=== PATIENT | male | born 1945 | race Caucasian/White ===

== ENCOUNTER 2016-12-02 07:46 | Day surgery (SDC) | payer MEDICARE ==
--- NOTE | 2016-07-13 20:58 | HP ---
DATE OF ADMISSION: CHIEF COMPLAINT: Gastroesophageal reflux disease. HISTORY OF PRESENT ILLNESS: Patient is a 71-year-old male with a history of chronic reflux. He underwent an upper endoscopy in 2012. The patient was found to have erosive distal esophagitis and a hiatal hernia and gastritis as well. The patient has been on antacid therapy since that time. Past medical history and past surgical history: See list. ALLERGIES: See list. PHYSICAL EXAMINATION: Deferred until the time of procedure. IMPRESSION: A 71-year-old male with reflux. PLAN: Will proceed with upper endoscopy on 07/15. The risks of bleeding, infection and bowel perforation will be discussed with the patient preoperatively.
[2016-11-25 09:43] VITALS: BMI 28.8
[~2016-12-02 07:46] MED LIST: LACTATED RINGERS 1,000 ML IV SCH
[2016-12-02 08:15] VITALS: RESP 20; TEMP 96.9
[2016-12-02] MEDS ORDERED: PROPOFOL 10 MG/ML 20 ML VIAL IV ONE (08:22)
[2016-12-02] MEDS ORDERED: LIDOCAINE 1% INJ 10MG/ML (20 ML MDV) ONE (08:22)
--- NOTE | 2016-12-02 08:25 | P.GSHP ---
History of Present Illness H&P Date: 12/02/16 Chief Complaint: Third Patient today for upper endoscopy. He has a chronic history of reflux. 2012 had an upper endoscopy which revealed distal esophagitis and a hiatal hernia. Patient is taking daily omeprazole. His symptoms are well-controlled on his oral medications. Denies dysphagia. Past Medical History Past Medical History: GERD/Reflux, Hyperlipidemia, Hypertension, Myocardial Infarction ([place]), Osteoarthritis ([place]) Additional Past Medical History / Comment(s): Hiatal Hernia, blood clot in rt arm yrs ago, hiatal hernia, Last Myocardial Infarction Date:: 2004 History of Any Multi-Drug Resistant Organisms: None Reported Past Surgical History: Heart Catheterization With Stent, Orthopedic Surgery Additional Past Surgical History / Comment(s): orchiectomy, colonoscopy; EGD, yemi hand carpal tunnel, yemi shoulders surgery Past Anesthesia/Blood Transfusion Reactions: Previous Problems w/ Anesthesia Additional Past Anesthesia/Blood Transfusion Reaction / Comment(s): . Date of Last Stent Placement:: 2004 Past Psychological History: No Psychological Hx Reported Smoking Status: Former smoker Past Alcohol Use History: Occasional Additional Past Alcohol Use History / Comment(s): quit smoking 30 yrs ago, smoked for 20 yrs Past Drug Use History: None Reported - Past Family History Sister(s) Family Medical History: Cancer Daughter(s) Family Medical History: Cancer Medications and Allergies Home Medications Medication Instructions Recorded Confirmed Type Aspirin 325 mg PO DAILY 07/13/16 12/02/16 History Atenolol 25 mg PO BID 07/13/16 12/02/16 History Atorvastatin [Lipitor] 80 mg PO HS 07/13/16 12/02/16 History Cholecalciferol [Vitamin D3] 1,000 unit PO DAILY 07/13/16 12/02/16 History Enalapril [Vasotec] 2.5 mg PO HS 07/13/16 12/02/16 History Ezetimibe [Zetia] 10 mg PO HS 07/13/16 12/02/16 History Omeprazole 20 mg PO DAILY 07/13/16 12/02/16 History Oxybutynin Chloride [Ditropan XL] 20 mg PO HS 07/13/16 12/02/16 History Allergies Allergy/AdvReac Type Severity Reaction Status Date / Time No Known Allergies Allergy Verified 11/25/16 09:29 Surgical - Exam Vital Signs Temp Pulse Resp BP Pulse Ox 96.9 F L 84 20 128/74 94 L 12/02/16 08:13 12/02/16 08:13 12/02/16 08:13 12/02/16 08:13 12/02/16 08:13 Physical exam: General: Well-developed, well-nourished HEENT: Normocephalic, sclerae nonicteric Abdomen: Nontender, nondistended Extremities: No edema Neuro: Alert and oriented Assessment and Plan (1) GERD (gastroesophageal reflux disease) Narrative/Plan: Will proceed with upper endoscopy at this time. Status: Acute
--- NOTE | 2016-12-02 08:32 | P.PCN ---
Date of Procedure: 12/02/16 Procedure(s) Performed: Preoperative Dx: GERD Postoperative Dx: Gastritis with small erosions, moderate hiatal hernia Procedure: EGD with Bx Anesthesia: Sedation Endoscopist: Dr. Miranda Specimens: Antrum Endoscopic Procedure: The patient was on the endoscopy table in the left decubitus position. The Olympus gastroscope was inserted into the oropharynx and passed under direct visualization to the region of the third portion of the duodenum. From that point the scope was slowly withdrawn inspecting all surfaces carefully. There were no neoplastic inflammatory or polypoid lesions throughout the duodenum. The pylorus was widely patent. The stomach was carefully inspected. There was gastritis present with a few small prepyloric erosions noted. A biopsy of the antrum took place to rule out H. pylori. Retroflexion revealed a moderate hiatal hernia. The patient's previous esophagitis however is resolved and no definite inflammation was seen. The patient was then taken to the recovery room in stable condition per anesthesia guidelines. Recommendations: Wait biopsy results. Continue antiacid therapy.
[2016-12-02 08:52] VITALS: BP 119/73; PULSE 73
== END 2016-12-02 08:19 | disposition home or self-care (01) ==
LOC: ORWHC2ENDO 07:46
PROVIDERS: ATTEND Surgery
DX: K29.50 Unspecified chronic gastritis without bleeding (principal); K44.9 Diaphragmatic hernia without obstruction or gangrene; K21.9 Gastro-esophageal reflux disease without esophagitis; E78.5 Hyperlipidemia, unspecified; I10 Essential (primary) hypertension; I25.2 Old myocardial infarction; M19.90 Unspecified osteoarthritis, unspecified site; I25.10 Atherosclerotic heart disease of native coronary artery without angina pectoris; Z95.5 Presence of coronary angioplasty implant and graft; Z87.891 Personal history of nicotine dependence; Z79.82 Long term (current) use of aspirin; Z79.899 Other long term (current) drug therapy
CPT/HCPCS: 88305; 88342; 43239; J2001; J2704

== ENCOUNTER → 2017-03-01 | Outpatient (CLI) | payer MEDICARE ==
--- NOTE | 2017-03-01 17:32 | US ---
EXAMINATION TYPE: US carotid duplex BILAT DATE OF EXAM: 03/01/2017 COMPARISON: 2010 US CLINICAL HISTORY: I65.23 Occlusion and stenosis of bilateral carotid. Vertigo EXAM MEASUREMENTS: RIGHT: Peak Systolic Velocity (PSV) cm/sec ----- Right CCA: 78.9 ----- Right ICA: 110 ----- Right ECA: 118 ICA/CCA ratio: 1.4 RIGHT: End Diastole cm/sec ----- Right CCA: 20.5 ----- Right ICA: 28.6 ----- Right ECA: 19.3 LEFT: Peak Systolic Velocity (PSV) cm/sec ----- Left CCA: 86.7 ----- Left ICA: 113 ----- Left ECA: 191 ICA/CCA ratio: 1.3 LEFT: End Diastole cm/sec ----- Left CCA: 23.6 ----- Left ICA: 34.6 ----- Left ECA: 18.6 VERTEBRALS (direction of flow): Right Vertebral: diminished Left Vertebral: antegrade 1. Mild changes. 2. Bilateral ICA tortuosity. 3. No elevated velocities. 4. No significant stenosis. 5. Diminished rt vertebral. IMPRESSION: 1. I DO NOT SEE EVIDENCE OF A HEMODYNAMICALLY SIGNIFICANT STENOSIS IN EITHER INTERNAL CAROTID OR COMM ON CAROTID ARTERY. 2. ELEVATED FLOW VELOCITY, LEFT ECA. 3. DAMPENED FLOW IN THE RIGHT VERTEBRAL ARTERY MAY REFLECT DOWNSTREAM NARROWING. Criteria for Assigning % of Stenosis / Diameter reduction (Estimation based on the indirect measurements of the internal carotid artery velocities (ICA PSV). 1. Normal (no stenosis)=ICA PSV < 125 cm/s: ratio < 2.0: ICA EDV<40 cm/s. 2. Less than 50% stenosis=ICA PSV < 125 cm/s: ratio < 2.0: ICA EDV<40 cm/s. 3. 50 to 69% stenosis=ICA PSV of 125 to 230 cm/s: ration 2.0 ? 4.0: ICA EDV 40-100 cm/s. 4. Greater than 70% stenosis to near occlusion= ICA PSV > 230 cm/s: ratio > 4.0: ICA EDV > 100 cm/s. 5. Near occlusion= ICA PSV velocities may be low or undetectable: variable ratio and ICA EDV. 6. Total occlusion=unable to detect flow.
== END | disposition home or self-care (01) ==
LOC: RADUSWWP 16:01
PROVIDERS: ATTEND Internal Medicine
DX: I65.23 Occlusion and stenosis of bilateral carotid arteries (principal)
CPT/HCPCS: 93880

== ENCOUNTER 2017-08-05 19:39 | Emergency (ER) | payer MEDICARE ==
[2017-08-05 20:08] VITALS: RESP 18
[2017-08-05] MEDS ORDERED: PROPARACAINE 0.5% OPHTH DROPS 15 ML BTL LEFT EYE STA (21:18)
[2017-08-05] MEDS ORDERED: TOBRAMYCIN 0.3% OPHTH OINT 3.5 GM TUBE LEFT EYE STA (21:29)
--- NOTE | 2017-08-05 21:31 | ED ---
Eye Problem HPI - General Chief complaint: Eye Problems Stated complaint: Eye Problem Time Seen by Provider: 08/05/17 20:41 Source: patient Mode of arrival: ambulatory Limitations: no limitations - History of Present Illness Initial comments: 72-year-old male patient presents to the emergency department today for evaluation of left eye irritation and redness. Patient states that he has been having issues with the eye for the last couple of months. He states that however over the last couple of days the issue seem to be getting worse. He states it feels like he has something in the eye. He denies any known incident where something became stuck in the eye. He states he has tried to flush out, has been using Visine on a daily basis for the last couple of months. He states he has clear drainage from the eye all throughout the day. He states when he wakes up there is some mild crusting. He denies any cough, congestion, sore throat, nasal drainage, fever, or chills. He denies any difficulty with vision. Patient denies any recent rash, shortness breath, chest pain, abdominal pain, nausea, vomiting, diarrhea, constipation, back pain, numbness, tingling, dizziness, weakness, hematuria, dysuria, urinary urgency, urinary frequency, headache, or any other complaints. - Related Data Home Medications Medication Instructions Recorded Confirmed Aspirin 325 mg PO DAILY 07/13/16 12/02/16 Atenolol 25 mg PO BID 07/13/16 12/02/16 Atorvastatin [Lipitor] 80 mg PO HS 07/13/16 12/02/16 Cholecalciferol [Vitamin D3] 1,000 unit PO DAILY 07/13/16 12/02/16 Enalapril [Vasotec] 2.5 mg PO HS 07/13/16 12/02/16 Ezetimibe [Zetia] 10 mg PO HS 07/13/16 12/02/16 Omeprazole 20 mg PO DAILY 07/13/16 12/02/16 Oxybutynin Chloride [Ditropan XL] 20 mg PO HS 07/13/16 12/02/16 Allergies Allergy/AdvReac Type Severity Reaction Status Date / Time No Known Allergies Allergy Verified 08/05/17 20:08 Review of Systems ROS Statement: Those systems with pertinent positive or pertinent negative responses have been documented in the HPI. ROS Other: All systems not noted in ROS Statement are negative. Past Medical History Past Medical History: GERD/Reflux, Hyperlipidemia, Hypertension, Myocardial Infarction ([place]), Osteoarthritis (OA) Additional Past Medical History / Comment(s): Hiatal Hernia, blood clot in rt arm yrs ago, hiatal hernia, vertigo Last Myocardial Infarction Date:: 2004 History of Any Multi-Drug Resistant Organisms: None Reported Past Surgical History: Heart Catheterization With Stent, Orthopedic Surgery Additional Past Surgical History / Comment(s): orchiectomy, colonoscopy; EGD, yemi hand carpal tunnel, yemi shoulders surgery Past Anesthesia/Blood Transfusion Reactions: Previous Problems w/ Anesthesia Additional Past Anesthesia/Blood Transfusion Reaction / Comment(s): . Date of Last Stent Placement:: 2004 Past Psychological History: No Psychological Hx Reported Smoking Status: Former smoker Past Alcohol Use History: Occasional Past Drug Use History: None Reported - Past Family History Sister(s) Family Medical History: Cancer Daughter(s) Family Medical History: Cancer General Exam Limitations: no limitations General appearance: alert, in no apparent distress, other (Physical well- developed, well-nourished adult male patient in no acute distress. Vital signs upon presentation are temperature 97.7F, pulse 99, respirations 18, blood pressure 142/71, pulse ox 93% on room air.) Eye exam: Present: normal appearance, PERRL, EOMI, conjunctival injection (Mild left conjunctival injection), other (Clear drainage noted from the left eye. Floor seen stain with Wood's lamp examination was performed, there was evidence of a conjunctival abrasion at 3:00. No evidence of hyphema, or corneal abrasion noted.). Absent: scleral icterus, periorbital swelling ENT exam: Present: normal exam, normal oropharynx, mucous membranes moist Respiratory exam: Present: normal lung sounds bilaterally. Absent: respiratory distress, wheezes, rales, rhonchi, stridor Cardiovascular Exam: Present: regular rate, normal rhythm, normal heart sounds. Absent: systolic murmur, diastolic murmur, rubs, gallop, clicks Neurological exam: Present: alert, oriented X3, CN II-XII intact Psychiatric exam: Present: normal affect, normal mood Skin exam: Present: warm, dry, intact, normal color. Absent: rash Course Vital Signs 08/05/17 08/05/17 20:05 21:39 Temperature 97.7 F 97.6 F Pulse Rate 99 84 Respiratory 18 18 Rate Blood Pressure 142/71 113/77 O2 Sat by Pulse 93 L 96 Oximetry Medical Decision Making - Medical Decision Making 72-year-old male patient presented to the emergency department today for evaluation of left eye irritation discomfort. Physical examination did reveal mild conjunctival injection, with clear drainage. Bethea lamp examination with for seen stain was performed and did reveal a conjunctival abrasion at 3:00. Patient will be discharged home with tobramycin ophthalmic ointment. He is instructed to take ibuprofen for discomfort. He is instructed to use a an eyedrop with no preservatives like a and ice saline. He is instructed not to use Visine. He is instructed to follow-up with ophthalmology for recheck in 1- 2 days. He is instructed to return here immediately for any new, worsening, or concerning symptoms. He verbalizes understanding and agrees with this plan. Disposition Clinical Impression: Conjunctival abrasion Disposition: HOME SELF-CARE Condition: Good Instructions: Corneal Abrasion (ED) Additional Instructions: You have a conjunctival abrasion. Instill tobramycin ointment to the lower eyelid 4 times daily while awake. Do not use Visine. Purchase an over-the- counter eyedrop that is preservative free, or something like eye saline drops. Follow-up with ophthalmology for reevaluation 1-2 days. Return here immediately for any new, worsening, or concerning symptoms. Referrals: Noel Wang MD [Primary Care Provider] - 1-2 days Isael Diallo MD [STAFF PHYSICIAN] - 1-2 days Time of Disposition: 21:31
[2017-08-05 21:40] VITALS: BP 113/77; PULSE 84; TEMP 97.6
== END 2017-08-05 21:40 | disposition home or self-care (01) ==
LOC: EC 19:39
DX: S05.02XA Injury of conjunctiva and corneal abrasion without foreign body, left eye, initial encounter (principal); K21.9 Gastro-esophageal reflux disease without esophagitis; E78.5 Hyperlipidemia, unspecified; I10 Essential (primary) hypertension; I25.2 Old myocardial infarction; Z95.5 Presence of coronary angioplasty implant and graft; Z87.891 Personal history of nicotine dependence; Z79.82 Long term (current) use of aspirin; Z79.899 Other long term (current) drug therapy
CPT/HCPCS: 99282

== ENCOUNTER → 2017-09-03 | Outpatient (CLI) | payer MEDICARE ==
--- NOTE | 2017-09-03 10:39 | US ---
EXAMINATION TYPE: US kidneys/renal and bladder DATE OF EXAM: 09/03/2017 COMPARISON: NONE CLINICAL HISTORY: Asymptomatic Microscopic Hematuria R31.21. EXAM MEASUREMENTS: Right Kidney: 10.3 x 5.4 x 5.4 cm Left Kidney: 10.6 x 5.4 x 4.9 cm Right Kidney: No hydronephrosis or masses seen Left Kidney: No hydronephrosis or masses seen Bladder: wnl Bilateral Jets seen: Yes Cortical medullary differentiation is maintained. Cortical echogenicity may be mildly increased bilat erally. IMPRESSION: Correlate for possible medical renal disease.
== END | disposition home or self-care (01) ==
LOC: RADUSWWP 09:26
PROVIDERS: ATTEND Internal Medicine
DX: R31.21 Asymptomatic microscopic hematuria (principal)
CPT/HCPCS: 76770

== ENCOUNTER → 2018-01-03 | Outpatient (CLI) | payer MEDICARE | LOC: LABWHC1 20:00 | PROVIDERS: ATTEND Internal Medicine | DX: R19.7 Diarrhea, unspecified (principal) | CPT/HCPCS: 87324 ==

== ENCOUNTER 2018-02-02 10:22 | Inpatient (IN) | payer MEDICARE ==
[2018-02-02] MEDS ORDERED: SODIUM CHLORIDE 0.9% 1,000 ML IV STA ×2 (11:06)
[2018-02-02 11:23] LABS: Basophils # (A) 0.1 k/uL (0-0.2); Basophils % (A) 0 %; Eosinophils # (A) 0.1 k/uL (0-0.7); Eosinophils % (A) 1 %; HCT 43.3 % (39.0-53.0); HGB 14.6 gm/dL (13.0-17.5); Lymphocytes # (A) 0.9 k/uL (1.0-4.8); Lymphocytes % (A) 6 %; MCH 28.2 pg (25.0-35.0); MCHC 33.7 g/dL (31.0-37.0); MCV 83.6 fL (80.0-100.0); Mean Platelet Volume 7.2; Monocytes # (A) 1.9 k/uL (0-1.0); Monocytes % (A) 12 %; Neutrophils # (A) 13.2 k/uL (1.3-7.7); Neutrophils % (A) 80 %; Platelet Count 243 k/uL (150-450); RBC 5.18 m/uL (4.30-5.90); RDW 14.3 % (11.5-15.5); WBC 16.4 k/uL (3.8-10.6)
[2018-02-02 11:34] LABS: ALT 30 U/L (21-72); AST 23 U/L (17-59); Albumin 3.8 g/dL (3.5-5.0); Alkaline Phosphatase 104 U/L (38-126); Amylase <30 U/L (30-110); Anion Gap 15 mmol/L; Blood Urea Nitrogen 14 mg/dL (9-20); Carbon Dioxide 23 mmol/L (22-30); Chloride 101 mmol/L (98-107); Glucose 105 mg/dL (74-99); Lipase 20 U/L (23-300); Potassium 4.1 mmol/L (3.5-5.1); Sodium 139 mmol/L (137-145); Total Bilirubin 1.1 mg/dL (0.2-1.3); Total Protein 6.4 g/dL (6.3-8.2)
--- NOTE | 2018-02-02 12:06 | XR ---
EXAMINATION TYPE: XR chest 2V DATE OF EXAM: 02/02/2018 COMPARISON: 08/07/2013 TECHNIQUE: PA and lateral views submitted. HISTORY: Chest pain FINDINGS: No pneumothorax or pleural Atherosclerotic change aorta. There is subsegmental changes at the left bj ng base. Hypertrophic and degenerative change of the spine. No overt failure. Biapical pleural thicke armand noted. Chronic arthropathy of the shoulders. IMPRESSION: 1. Left basilar subsegmental consolidation correlate for atelectasis versus infiltrate..
--- NOTE | 2018-02-02 12:07 | XR ---
EXAMINATION TYPE: XR KUB DATE OF EXAM: 02/02/2018 COMPARISON: NONE HISTORY: Pain TECHNIQUE: One view abdominal series FINDINGS: The osseous structures are intact. The bowel gas pattern is nonspecific. There is a paucity of bowel gas. Arthropathy of the hips. Hypertrophic changes of the spine. IMPRESSION: 1. Nonspecific abdomen. Differential include an ileus or enteritis correlate clinically.
--- NOTE | 2018-02-02 12:09 | ED ---
General Adult HPI - General Chief complaint: Nausea/Vomiting/Diarrhea Stated complaint: CHEST PAIN POSS CDIFF Time Seen by Provider: 02/02/18 10:41 Source: patient, RN notes reviewed, old records reviewed Mode of arrival: ambulatory Limitations: no limitations - History of Present Illness Initial comments: 73-year-old male with history of C. diff presents today worsening diarrhea. Also reports having some episodes of chest pain complaints today. He slept wrong which is why he believes he is having the chest pain. He states he feels like he maybe pulled a chest wall muscle.. Patient states that he was recently diagnosed with of C. diff, completed oral antibiotics for C. diff out patiently. He reports that he finished antibiotics 10 days ago, Patient reports that Dr. Wang placed him on the powder substance to treat for the C. diff that he does not remember what this was. On Wednesday started having worsening diarrhea. Similar to his last episode of colitis. He states he is having some severe diarrhea. No vomiting. Does report abdominal cramping. Patient reports occasional fevers and chills. - Related Data Home Medications Medication Instructions Recorded Confirmed Aspirin 325 mg PO DAILY 07/13/16 02/02/18 Atenolol 25 mg PO BID 07/13/16 02/02/18 Atorvastatin [Lipitor] 80 mg PO HS 07/13/16 02/02/18 Cholecalciferol [Vitamin D3] 1,000 unit PO DAILY 07/13/16 02/02/18 Enalapril [Vasotec] 2.5 mg PO HS 07/13/16 02/02/18 Ezetimibe [Zetia] 10 mg PO HS 07/13/16 02/02/18 Omeprazole 20 mg PO DAILY 07/13/16 02/02/18 Tolterodine Tartrate [Detrol LA] 4 mg PO HS 02/02/18 02/02/18 Allergies Allergy/AdvReac Type Severity Reaction Status Date / Time meperidine [From Demerol] Allergy UNRESPONSIV Verified 02/02/18 12:56 E Review of Systems ROS Statement: Those systems with pertinent positive or pertinent negative responses have been documented in the HPI. ROS Other: All systems not noted in ROS Statement are negative. Past Medical History Past Medical History: GERD/Reflux, Hyperlipidemia, Hypertension, Myocardial Infarction ([place]), Osteoarthritis (OA) Additional Past Medical History / Comment(s): Hiatal Hernia, blood clot in rt arm yrs ago, hiatal hernia, vertigo Last Myocardial Infarction Date:: 2004 History of Any Multi-Drug Resistant Organisms: None Reported Past Surgical History: Heart Catheterization With Stent, Orthopedic Surgery Additional Past Surgical History / Comment(s): orchiectomy, colonoscopy; EGD, yemi hand carpal tunnel, yemi shoulders surgery Past Anesthesia/Blood Transfusion Reactions: Previous Problems w/ Anesthesia Additional Past Anesthesia/Blood Transfusion Reaction / Comment(s): . Date of Last Stent Placement:: 2004 Past Psychological History: No Psychological Hx Reported Smoking Status: Former smoker Past Alcohol Use History: Occasional Past Drug Use History: None Reported - Past Family History Sister(s) Family Medical History: Cancer Daughter(s) Family Medical History: Cancer General Exam - General Exam Comments Initial Comments: 73-year-old male. Alert and oriented. No significant distress. Limitations: no limitations General appearance: alert, in no apparent distress Head exam: Present: atraumatic, normocephalic, normal inspection Eye exam: Present: normal appearance, PERRL, EOMI. Absent: scleral icterus, conjunctival injection, periorbital swelling ENT exam: Present: normal exam, mucous membranes moist Neck exam: Present: normal inspection Respiratory exam: Present: normal lung sounds bilaterally. Absent: respiratory distress, wheezes, rales, rhonchi, stridor Cardiovascular Exam: Present: regular rate, normal rhythm, normal heart sounds. Absent: systolic murmur, diastolic murmur, rubs, gallop, clicks GI/Abdominal exam: Present: soft, normal bowel sounds, other (Hyperactive bowel sounds. No tenderness or guarding. ). Absent: distended, tenderness, guarding , rebound, rigid Extremities exam: Present: normal inspection Back exam: Present: normal inspection Neurological exam: Present: alert, oriented X3, CN II-XII intact Psychiatric exam: Present: normal affect Skin exam: Present: warm, dry, intact, normal color. Absent: rash Course Vital Signs 02/02/18 02/02/18 02/02/18 10:27 12:16 14:04 Temperature 97.9 F Pulse Rate 100 97 95 Respiratory 18 18 18 Rate Blood Pressure 119/80 157/92 133/74 O2 Sat by Pulse 96 95 96 Oximetry EKG Findings - EKG Comments: EKG Findings:: EKG shows a resection prolonged QT. Abnormal EKG. 294. QRS duration 90 ms. OK interval 164 ms. QTC 374/467. No evidence of ST elevation or T-wave inversion. Medical Decision Making - Medical Decision Making 73-year-old male presents emergency room today to complain of chest pain onset of this morning as well as worsening diarrhea for the past few days. He is recently diagnosed with C. diff and treated outpatient. He states that his diarrhea returned on Wednesday and has been worse. Patient was given IV fluids and her team. Evidence of leukocytosis likely responses diarrhea. He is C. diff positive. EKG read shows no significant changes at this time. Troponin is negative. At this time limitation for chest pain and treatment for C. diff. We will give the Patient one by mouth Flagyl at this time. - Lab Data Result diagrams: 02/02/18 11:00 02/02/18 11:00 Lab Results 02/02/18 02/02/18 02/02/18 Range/Units 11:00 11:00 11:00 WBC 16.4 H (3.8-10.6) k/uL RBC 5.18 (4.30-5.90) m/uL Hgb 14.6 (13.0-17.5) gm/dL Hct 43.3 (39.0-53.0) % MCV 83.6 (80.0-100.0) fL MCH 28.2 (25.0-35.0) pg MCHC 33.7 (31.0-37.0) g/dL RDW 14.3 (11.5-15.5) % Plt Count 243 (150-450) k/uL Neutrophils % 80 % Lymphocytes % 6 % Monocytes % 12 % Eosinophils % 1 % Basophils % 0 % Neutrophils # 13.2 H (1.3-7.7) k/uL Lymphocytes # 0.9 L (1.0-4.8) k/uL Monocytes # 1.9 H (0-1.0) k/uL Eosinophils # 0.1 (0-0.7) k/uL Basophils # 0.1 (0-0.2) k/uL Sodium 139 (137-145) mmol/L Potassium 4.1 (3.5-5.1) mmol/L Chloride 101 (98-107) mmol/L Carbon Dioxide 23 (22-30) mmol/L Anion Gap 15 mmol/L BUN 14 (9-20) mg/dL Creatinine 0.90 (0.66-1.25) mg/dL Est GFR (CKD-EPI)AfAm >90 (>60 ml/min/1.73 sqM) Est GFR (CKD-EPI)NonAf 86 (>60 ml/min/1.73 sqM) Glucose 105 H (74-99) mg/dL Calcium 9.0 (8.4-10.2) mg/dL Total Bilirubin 1.1 (0.2-1.3) mg/dL AST 23 (17-59) U/L ALT 30 (21-72) U/L Alkaline Phosphatase 104 (38-126) U/L Troponin I <0.012 (0.000-0.034) ng/mL Total Protein 6.4 (6.3-8.2) g/dL Albumin 3.8 (3.5-5.0) g/dL Amylase <30 L (30-110) U/L Lipase 20 L (23-300) U/L Urine Color Urine Appearance (Clear) Urine pH (5.0-8.0) Ur Specific [place] (1.001-1.035) Urine Protein (Negative) Urine Glucose (UA) (Negative) Urine Ketones (Negative) Urine Blood (Negative) Urine Nitrite (Negative) Urine Bilirubin (Negative) Urine Urobilinogen (<2.0) mg/dL Ur Leukocyte Esterase (Negative) Urine RBC (0-5) /hpf Urine WBC (0-5) /hpf Ur Squamous Epith Cells (0-4) /hpf Urine Bacteria (None) /hpf Urine Mucus (None) /hpf C. difficile (EIA) Intrp (Negative) 02/02/18 02/02/18 Range/Units 12:24 12:30 WBC (3.8-10.6) k/uL RBC (4.30-5.90) m/uL Hgb (13.0-17.5) gm/dL Hct (39.0-53.0) % MCV (80.0-100.0) fL MCH (25.0-35.0) pg MCHC (31.0-37.0) g/dL RDW (11.5-15.5) % Plt Count (150-450) k/uL Neutrophils % % Lymphocytes % % Monocytes % % Eosinophils % % Basophils % % Neutrophils # (1.3-7.7) k/uL Lymphocytes # (1.0-4.8) k/uL Monocytes # (0-1.0) k/uL Eosinophils # (0-0.7) k/uL Basophils # (0-0.2) k/uL Sodium (137-145) mmol/L Potassium (3.5-5.1) mmol/L Chloride (98-107) mmol/L Carbon Dioxide (22-30) mmol/L Anion Gap mmol/L BUN (9-20) mg/dL Creatinine (0.66-1.25) mg/dL Est GFR (CKD-EPI)AfAm (>60 ml/min/1.73 sqM) Est GFR (CKD-EPI)NonAf (>60 ml/min/1.73 sqM) Glucose (74-99) mg/dL Calcium (8.4-10.2) mg/dL Total Bilirubin (0.2-1.3) mg/dL AST (17-59) U/L ALT (21-72) U/L Alkaline Phosphatase (38-126) U/L Troponin I (0.000-0.034) ng/mL Total Protein (6.3-8.2) g/dL Albumin (3.5-5.0) g/dL Amylase (30-110) U/L Lipase (23-300) U/L Urine Color Yellow Urine Appearance Clear (Clear) Urine pH 5.5 (5.0-8.0) Ur Specific [place] 1.013 (1.001-1.035) Urine Protein Trace H (Negative) Urine Glucose (UA) Negative (Negative) Urine Ketones 2+ H (Negative) Urine Blood Small H (Negative) Urine Nitrite Negative (Negative) Urine Bilirubin Negative (Negative) Urine Urobilinogen <2.0 (<2.0) mg/dL Ur Leukocyte Esterase Negative (Negative) Urine RBC 2 (0-5) /hpf Urine WBC 1 (0-5) /hpf Ur Squamous Epith Cells <1 (0-4) /hpf Urine Bacteria Rare H (None) /hpf Urine Mucus Occasional H (None) /hpf C. difficile (EIA) Intrp Positive A (Negative) - Radiology Data Radiology results: report reviewed Chest x-ray shows left basilar subsequent mental consolidation correlate for Regino versus infiltrate. X-ray shows nonspecific abdomen. Differential included ileus or enteritis correlate clinically. Disposition Clinical Impression: Chest pain, C. difficile colitis Disposition: ADMITTED IP TO THIS HOSP Condition: Stable Is patient prescribed a controlled substance at d/c from ED?: No When asked, does pt state using other controlled substances?: No If prescribed controlled substance>3 days was MAPS reviewed?: No If opioid is for acute pain is fill amount 7 days or less?: No If Rx opioid, was Start Talking consent form obtained?: No Referrals: Noel Wang MD [Primary Care Provider] - 1-2 days Time of Disposition: 14:19
[2018-02-02 13:08] LABS: Appearance,Urine Clear (Clear); Bacteria,Urine Rare /hpf; Bilirubin,Urine Negative (Negative); Blood,Urine Small (Negative); Color,Urine Yellow; Glucose,Urine (UA) Negative (Negative); Ketones,Urine 2+ (Negative); Leukocyte Esterase,Urine Negative (Negative); Mucus,Urine Occasional /hpf; Nitrite,Urine Negative (Negative); PH, Urine 5.5 (5.0-8.0); Protein,Urine Trace (Negative); RBC,Urine 2 /hpf (0-5); Specific Gravity,Urine 1.013 (1.001-1.035); Squamous Epithelial Cell,Urine <1 /hpf (0-4); Urobilinogen,Urine <2.0 mg/dL (<2.0); WBC,Urine 1 /hpf (0-5)
[2018-02-02] MEDS ORDERED: metroNIDAZOLE 500 MG TAB PO STA (14:17)
[2018-02-02] MEDS ORDERED: ONDANSETRON 4 MG/2 ML VIAL IVP PRN (14:19)
[2018-02-02] MEDS ORDERED: ALPRAZolam 0.25 MG TAB PO PRN (14:19)
[2018-02-02] MEDS ORDERED: NALOXONE 0.4 MG/ML 1 ML VIAL IV PRN (14:19)
[2018-02-02] MEDS ORDERED: ACETAMINOPHEN TAB 325 MG TAB PO PRN (14:19)
[2018-02-02] MEDS ORDERED: KETOROLAC 30 MG/ML 1 ML VIAL IVP PRN (14:19)
[2018-02-02] MEDS ORDERED: MORPHINE SULFATE 2 MG/ML SYRINGE IV PRN (14:19)
[2018-02-02] MEDS ORDERED: IBUPROFEN 400 MG TAB PO PRN (14:19)
[2018-02-02] MEDS: SODIUM CHLORIDE 0.9% 1,000 ML IV SCH (15:00)
--- NOTE | 2018-02-02 17:01 | P.HPIM ---
History of Present Illness H&P Date: 02/02/18 Chief Complaint: chest pain, abdominal pain, C. diff colitis, CAD, hypertension 73-year-old male one of Dr. Wang's patient with past medical history of CAD post CT post angioplasty and stent placement, history of hypertension, hyperlipidemia and osteoarthritis who apparently spend the winter in [place] developed to have thrombosed hemorrhoid require oral antibiotic for. This time also had the influenza was treated with Tamiflu when according to him had antibiotics will more time. Patient was treated with his manager branch recently with the 10 days worth of amoxicillin which finally gave him severe episode of smelly diarrhea was diagnosed with C. diff as an outpatient and treated for 14 days with Flagyl and Questran. Patient done well ~last 5 days when he developed to have worsening watery diarrhea going over 5-15 times a day with worsening symptom consistent with abdominal pain severe dehydration lightheadedness. Patient developed to have beside his increase abdominal discomfort and diarrhea and episodes chest pain today. Ended up coming to the emergency department at [facility] where was seen and evaluated his troponin and EKG didn't show any abnormality, chest x-ray showed atelectasis with no sign of infiltrate. KUB showed nonspecific abdomen with differential include an ileus or enteritis. Lab value shows positive C. diff also significantly elevated WBC. Patient was started on Flagyl hydration Will add vancomycin suspension and admitted to the hospital with above problem. Review of Systems Constitutional: Reports fatigue, Reports lethargy, Reports weakness Eyes: denies blurred vision, denies bulging eye, denies decreased vision Ears: deny: decreased hearing, ear discharge, earache Ears, nose, mouth and throat: Denies headache, Denies sore throat Cardiovascular: Reports decreased exercise tolerance, Reports dyspnea on exertion, Reports shortness of breath, worsening edema. Respiratory: Reports cough, Reports dyspnea, worsening shortness of breath along with cough productive phlegm. Gastrointestinal: Positive abdominal pain, positive diarrhea, positive nausea, positive vomiting Genitourinary: Reports as per HPI Musculoskeletal: Denies myalgias Musculoskeletal: absent: ankle pain, ankle stiffness, ankle swelling Integumentary: Denies pruritus, Denies rash, worsening edema of the lower extremity. Neurological: Reports change in mentation, Reports weakness, mild change mental status compared to his baseline. Psychiatric: Denies anxiety, Denies depression Endocrine: Denies fatigue, Denies weight change Hematologic/Lymphatic: Reports as per HPI Allergic/Immunologic: Reports as per HPI Past Medical History Past Medical History: GERD/Reflux, Hyperlipidemia, Hypertension, Myocardial Infarction (CT), Osteoarthritis (OA) Additional Past Medical History / Comment(s): Hiatal Hernia, blood clot in rt arm yrs ago, hiatal hernia, vertigo Last Myocardial Infarction Date:: 2004 History of Any Multi-Drug Resistant Organisms: None Reported Past Surgical History: Heart Catheterization With Stent, Orthopedic Surgery Additional Past Surgical History / Comment(s): orchiectomy, colonoscopy; EGD, yemi hand carpal tunnel, yemi shoulders surgery Past Anesthesia/Blood Transfusion Reactions: Previous Problems w/ Anesthesia Additional Past Anesthesia/Blood Transfusion Reaction / Comment(s): . Date of Last Stent Placement:: 2004 Past Psychological History: No Psychological Hx Reported Smoking Status: Former smoker Past Alcohol Use History: Occasional Past Drug Use History: None Reported - Past Family History Sister(s) Family Medical History: Cancer Daughter(s) Family Medical History: Cancer Medications and Allergies Home Medications Medication Instructions Recorded Confirmed Type Aspirin 325 mg PO DAILY 07/13/16 02/02/18 History Atenolol 25 mg PO BID 07/13/16 02/02/18 History Atorvastatin [Lipitor] 80 mg PO HS 07/13/16 02/02/18 History Cholecalciferol [Vitamin D3] 1,000 unit PO DAILY 07/13/16 02/02/18 History Enalapril [Vasotec] 2.5 mg PO HS 07/13/16 02/02/18 History Ezetimibe [Zetia] 10 mg PO HS 07/13/16 02/02/18 History Omeprazole 20 mg PO DAILY 07/13/16 02/02/18 History Tolterodine Tartrate [Detrol LA] 4 mg PO HS 02/02/18 02/02/18 History Allergies Allergy/AdvReac Type Severity Reaction Status Date / Time meperidine [From Demerol] Allergy UNRESPONSIV Verified 02/02/18 12:56 E Physical Exam Vitals: Vital Signs Temp Pulse Resp BP Pulse Ox 02/02/18 15:00 102 H 18 133/84 95 02/02/18 14:04 95 18 133/74 96 02/02/18 12:16 97 18 157/92 95 06/20/18 10:27 97.9 F 100 18 119/80 96 Intake and Output 02/02/18 02/02/18 02/02/18 06:59 14:59 22:59 Other: Weight 86.183 kg Constitutional: Well-developed in no acute respiratory distress. With mild fatigue tiredness and lightheadedness. Neck HEENT: Supple pupils are symmetric and reactive to light no carotid bruits or thyroid enlargement. Chest wall: Will expansion bilaterally with no chest wall deformity. Lungs: Decreased breath sound, no crackles or rhonchi no wheezes. Cardiovascular: PMI is in the left fifth costal space, anterior axillary line, irregular rhythm and rate S1, S2, positive S3, positive PVCs. Abdomen: distended, slight discomfort in the mid abdominal and lower abdominal area with worsening gas effect with no rebound or rigidity.. Extremities: No edema, decreased pulses dorsalis pedis and posterior tibial bilaterally. Positive severe degenerative arthritis in both knees with mild to moderate osteoarthritis in both hands. Neuro: Alert, slightly confused, moving all his 4 extremity has generalized weakness no focal deficit. Results CBC & Chem 7: 02/02/18 11:00 02/02/18 11:00 Labs: Abnormal Lab Results - Last 24 Hours (Table) 02/02/18 02/02/18 02/02/18 Range/Units 11:00 11:00 12:24 WBC 16.4 H (3.8-10.6) k/uL Neutrophils # 13.2 H (1.3-7.7) k/uL Lymphocytes # 0.9 L (1.0-4.8) k/uL Monocytes # 1.9 H (0-1.0) k/uL Glucose 105 H (74-99) mg/dL Amylase <30 L (30-110) U/L Lipase 20 L (23-300) U/L Urine Protein (Negative) Urine Ketones (Negative) Urine Blood (Negative) Urine Bacteria (None) /hpf Urine Mucus (None) /hpf C. difficile (EIA) Intrp Positive A (Negative) 02/02/18 Range/Units 12:30 WBC (3.8-10.6) k/uL Neutrophils # (1.3-7.7) k/uL Lymphocytes # (1.0-4.8) k/uL Monocytes # (0-1.0) k/uL Glucose (74-99) mg/dL Amylase (30-110) U/L Lipase (23-300) U/L Urine Protein Trace H (Negative) Urine Ketones 2+ H (Negative) Urine Blood Small H (Negative) Urine Bacteria Rare H (None) /hpf Urine Mucus Occasional H (None) /hpf C. difficile (EIA) Intrp (Negative) Assessment and Plan Plan: 1 severe abdominal pain: Most likely C. diff colitis with worsening symptom and recurrent will continue Flagyl will add vancomycin suspension along with Questran and probiotics we'll consult infectious disease with Dr. ramires to see patient on regular basis and see if he can benefit from dificid. 2 leukocytosis: Awaiting for culture no need for any other antibiotic at this point. 3 CAD: With recurrent chest pain continue with troponin 3 this time repeat EKG and if needed will consult cardiology. 4 hypertension: Patient has been doing well on atenolol 25 mg twice a day and Vasotec 2.5 g a day. 5 hyperlipidemia: Has been on atorvastatin 80 mg daily. 6 BPH with worsening symptoms continue patient on Detrol LA 4 mg daily at bedtime. 7 GERD/GI prophylaxis: Patient was switched to pantoprazole IV. 8 DVT prophylaxis: Early mobilization and knee-high LESLY hose. CODE STATUS: Full code. Admit patient to inpatient status for more than 2 nights.
[2018-02-02 17:40] LABS: Creatine Kinase 43 U/L (55-170)
[2018-02-02] MEDS ORDERED: CHERRY FLAVOR 60 ML BOTTLE PO PRN (17:44)
[2018-02-02 17:53] LABS: Creatine Kinase MB 0.4 ng/mL (0.0-2.4); Troponin I <0.012 ng/mL (0.000-0.034)
[2018-02-02] MEDS ORDERED: VANCOMYCIN ORAL SOLUTION 250 MG/5 ML BOTTLE PO SCH (18:00)
[2018-02-02] MEDS: CHOLESTYRAMINE (WITH SUGAR) 4 GM PACKET PO SCH (18:25)
[2018-02-02] MEDS: ATORVASTATIN 80 MG TAB PO SCH (21:57)
[2018-02-02] MEDS: LISINOPRIL 5 MG TAB PO SCH (21:57)
[2018-02-02] MEDS ORDERED: metroNIDAZOLE 500 MG TAB PO SCH (22:00)
[2018-02-02] MEDS: ATENOLOL 25 MG TAB PO SCH (22:14)
[2018-02-02] MEDS: EZETIMIBE 10 MG TAB PO SCH (22:14)
[2018-02-02 23:09] VITALS: BMI 28.8
[2018-02-02] MEDS: FIDAXOMICIN 200 MG TABLET PO SCH (23:40)
[2018-02-03 00:06] LABS: Creatine Kinase 40 U/L (55-170)
[2018-02-03 00:20] LABS: Creatine Kinase MB 0.5 ng/mL (0.0-2.4); Troponin I <0.012 ng/mL (0.000-0.034)
[2018-02-03 06:37] LABS: Basophils # (A) 0.1 k/uL (0-0.2); Basophils % (A) 1 %; Eosinophils # (A) 0.2 k/uL (0-0.7); Eosinophils % (A) 2 %; HCT 38.3 % (39.0-53.0); HGB 12.8 gm/dL (13.0-17.5); Lymphocytes # (A) 1.9 k/uL (1.0-4.8); Lymphocytes % (A) 16 %; MCH 28.1 pg (25.0-35.0); MCHC 33.5 g/dL (31.0-37.0); MCV 84.1 fL (80.0-100.0); Mean Platelet Volume 7.2; Monocytes # (A) 1.4 k/uL (0-1.0); Monocytes % (A) 12 %; Neutrophils # (A) 7.7 k/uL (1.3-7.7); Neutrophils % (A) 66 %; Platelet Count 216 k/uL (150-450); RBC 4.56 m/uL (4.30-5.90); RDW 14.3 % (11.5-15.5); WBC 11.8 k/uL (3.8-10.6)
[2018-02-03 06:46] LABS: ALT 30 U/L (21-72); AST 16 U/L (17-59); Albumin 2.8 g/dL (3.5-5.0); Alkaline Phosphatase 78 U/L (38-126); Anion Gap 9 mmol/L; Blood Urea Nitrogen 11 mg/dL (9-20); Calcium 8.5 mg/dL (8.4-10.2); Carbon Dioxide 25 mmol/L (22-30); Chloride 105 mmol/L (98-107); Glucose 99 mg/dL (74-99); Potassium 3.6 mmol/L (3.5-5.1); Sodium 139 mmol/L (137-145); Total Protein 5.2 g/dL (6.3-8.2)
[2018-02-03 09:10] VITALS: RESP 18
[2018-02-03] MEDS: FIDAXOMICIN 200 MG TABLET PO SCH ×2 (09:11→20:24)
[2018-02-03] MEDS: ATENOLOL 25 MG TAB PO SCH ×2 (09:11→20:24)
[2018-02-03] MEDS: PANTOPRAZOLE 40 MG/10 ML VIAL IV SCH (09:11)
[2018-02-03] MEDS: CHOLECALCIFEROL 1,000 UNIT TAB PO SCH (09:11)
[2018-02-03] MEDS: ASPIRIN 325 MG TAB PO SCH (09:11)
[2018-02-03] MEDS: SODIUM CHLORIDE 0.9% 1,000 ML IV SCH ×4 (09:11→23:32)
[2018-02-03] MEDS: CHOLESTYRAMINE (WITH SUGAR) 4 GM PACKET PO SCH ×2 (09:12→17:45)
--- NOTE | 2018-02-03 09:58 | CONS ---
CONSULTATION Mr. Rivas is a 73-year-old male patient who follows with Dr. Olson. He was admitted with diarrhea and is being worked up for diarrhea and possibly C difficile. He has had at least 5 to 15 episodes of diarrhea per day. Cardiology was consulted on account of localized discomfort in the left pectoral area just below his breast. The patient points to this with a finger. He is comfortable. He is lying flat in bed. He has no breathing trouble. He has no exertional chest pain. Past history of coronary artery disease, status post [place] and stent placement in the past, hypertension, dyslipidemia and hemorrhoid problems. REVIEW OF SYSTEMS: Patient complained of fatigue and weakness. No blurring of vision. He reports exercise intolerance, dyspnea on exertion and occasional edema. He reports cough, shortness of breath and productive cough. He has abdominal pain, diarrhea, nausea, vomiting. No hematuria or dysuria. No strokes or seizures. No skin lesions. No musculoskeletal complaints. PAST HISTORY: Past history of GERD, hypertension, dyslipidemia, [place], CAD. PAST PROCEDURE: Coronary stenting and orthopedic surgery. SOCIAL HISTORY: Former smoker. MEDICATION LIST: Aspirin, atenolol, atorvastatin, vitamin D, Vasotec, Zetia, omeprazole, and Detrol. ALLERGIES: Allergies to DEMEROL. PHYSICAL EXAMINATION: On examination, his pulse rate is about 97 beats per minute. Blood pressure 133/84 mmHg. He is afebrile. Highest temperature was 100 degrees Fahrenheit. Weight is 86 kilos. Heart sounds S1, S2 are normal. Breath sounds are clear. Extremities are warm. No edema. Abdomen is soft. IMPRESSION: 1. The patient admitted with watery diarrhea, 5 to 15 episodes per day, and being evaluated and managed for this by the medical team. 2. Cardiology consulted for known coronary artery disease, status post coronary stenting. 3. Atypical chest discomfort with normal cardiac enzymes. Labs are reviewed. 4. History of hypertension. Blood pressure is reasonably well controlled. 5. Dyslipidemia, on atorvastatin. SUGGEST: Continue cardiac medications and continue management of abdominal issues. From a cardiac standpoint, there is no further cardiac workup. He recently saw Dr. Olson and will see him as an outpatient as scheduled. We will sign off. The patient may go to a medical floor. MMODL / IJN: [id number] /
--- NOTE | 2018-02-03 11:21 | P.PN ---
Subjective 73-year-old male one of Dr. Wang's patient with past medical history of CAD post [place] post angioplasty and stent placement, history of hypertension, hyperlipidemia and osteoarthritis who apparently spend the winter in [place] developed to have thrombosed hemorrhoid require oral antibiotic for. This time also had the influenza was treated with Tamiflu when according to him had antibiotics will more time. Patient was treated with his reducing salon attendant recently with the 10 days worth of amoxicillin which finally gave him severe episode of smelly diarrhea was diagnosed with C. diff as an outpatient and treated for 14 days with Flagyl and Questran. Patient done well ~last 5 days when he developed to have worsening watery diarrhea going over 5-15 times a day with worsening symptom consistent with abdominal pain severe dehydration lightheadedness. Patient developed to have beside his increase abdominal discomfort and diarrhea and episodes chest pain today. Ended up coming to the emergency department at [facility] where was seen and evaluated his troponin and EKG didn't show any abnormality, chest x-ray showed atelectasis with no sign of infiltrate. KUB showed nonspecific abdomen with differential include an ileus or enteritis. Lab value shows positive C. diff also significantly elevated WBC. Patient was started on Flagyl hydration Will add vancomycin suspension and admitted to the hospital with above problem. 02/03: Stool culture still in process, C.Diff was positive, he continues on Dificid. He reports he is still having multiple bouts of loose stools. White count slightly elevated at 11.8, vital signs are stable, infectious disease on consult. He denies any further episodes of chest pain, troponins 3 have been negative. Cardiology was consulted, recommend medical management and cleared from a cardiology standpoint. Objective - Vital Signs Vital signs: Vital Signs Temp 96.7 F L 02/03/18 04:00 Pulse 81 02/03/18 04:00 Resp 16 02/03/18 04:00 BP 128/78 02/03/18 04:00 Pulse Ox 96 02/03/18 04:00 Intake & Output 02/02/18 02/03/18 02/03/18 18:59 06:59 18:59 Weight 86.183 kg 87.1 kg Other: Voiding Method Toilet # Bowel Movements 3 - Exam Constitutional: Well-developed in no acute respiratory distress. With mild fatigue tiredness and lightheadedness. Neck HEENT: Supple pupils are symmetric and reactive to light no carotid bruits or thyroid enlargement. Chest wall: Will expansion bilaterally with no chest wall deformity. Lungs: Decreased breath sound, no crackles or rhonchi no wheezes. Cardiovascular: PMI is in the left fifth costal space, anterior axillary line, irregular rhythm and rate S1, S2, positive S3, positive PVCs. Abdomen: distended, slight discomfort in the mid abdominal and lower abdominal area with worsening gas effect with no rebound or rigidity.. Extremities: No edema, decreased pulses dorsalis pedis and posterior tibial bilaterally. Positive severe degenerative arthritis in both knees with mild to moderate osteoarthritis in both hands. Neuro: Alert, slightly confused, moving all his 4 extremity has generalized weakness no focal deficit. - Labs CBC & Chem 7: 02/03/18 06:10 02/03/18 06:10 Labs: Abnormal Lab Results - Last 24 Hours (Table) 02/02/18 02/02/18 02/02/18 Range/Units 11:00 11:00 12:24 WBC 16.4 H (3.8-10.6) k/uL Hgb (13.0-17.5) gm/dL Hct (39.0-53.0) % Neutrophils # 13.2 H (1.3-7.7) k/uL Lymphocytes # 0.9 L (1.0-4.8) k/uL Monocytes # 1.9 H (0-1.0) k/uL Glucose 105 H (74-99) mg/dL AST (17-59) U/L Total Creatine Kinase (55-170) U/L Total Protein (6.3-8.2) g/dL Albumin (3.5-5.0) g/dL Amylase <30 L (30-110) U/L Lipase 20 L (23-300) U/L Urine Protein (Negative) Urine Ketones (Negative) Urine Blood (Negative) Urine Bacteria (None) /hpf Urine Mucus (None) /hpf C. difficile (EIA) Intrp Positive A (Negative) 02/02/18 02/02/18 02/02/18 Range/Units 12:30 17:06 23:24 WBC (3.8-10.6) k/uL Hgb (13.0-17.5) gm/dL Hct (39.0-53.0) % Neutrophils # (1.3-7.7) k/uL Lymphocytes # (1.0-4.8) k/uL Monocytes # (0-1.0) k/uL Glucose (74-99) mg/dL AST (17-59) U/L Total Creatine Kinase 43 L 40 L (55-170) U/L Total Protein (6.3-8.2) g/dL Albumin (3.5-5.0) g/dL Amylase (30-110) U/L Lipase (23-300) U/L Urine Protein Trace H (Negative) Urine Ketones 2+ H (Negative) Urine Blood Small H (Negative) Urine Bacteria Rare H (None) /hpf Urine Mucus Occasional H (None) /hpf C. difficile (EIA) Intrp (Negative) 02/03/18 02/03/18 Range/Units 06:10 06:10 WBC 11.8 H (3.8-10.6) k/uL Hgb 12.8 L (13.0-17.5) gm/dL Hct 38.3 L (39.0-53.0) % Neutrophils # (1.3-7.7) k/uL Lymphocytes # (1.0-4.8) k/uL Monocytes # 1.4 H (0-1.0) k/uL Glucose (74-99) mg/dL AST 16 L (17-59) U/L Total Creatine Kinase (55-170) U/L Total Protein 5.2 L (6.3-8.2) g/dL Albumin 2.8 L (3.5-5.0) g/dL Amylase (30-110) U/L Lipase (23-300) U/L Urine Protein (Negative) Urine Ketones (Negative) Urine Blood (Negative) Urine Bacteria (None) /hpf Urine Mucus (None) /hpf C. difficile (EIA) Intrp (Negative) Microbiology - Last 24 Hours (Table) 02/02/18 12:24 Stool Culture - Preliminary Stool Assessment and Plan Plan: 1 Severe abdominal pain: Most likely C. diff colitis with worsening symptom and recurrent will continue Dificid along with Questran and probiotics, infectious disease on consult. 2 leukocytosis: Awaiting for culture no need for any other antibiotic at this point. 3 CAD: With recurrent chest pain continue with troponin 3 this time repeat EKG and cardiology was consulted and cleared. 4 hypertension: Patient has been doing well on atenolol 25 mg twice a day and Vasotec 2.5 g a day. 5 hyperlipidemia: Has been on atorvastatin 80 mg daily. 6 BPH with worsening symptoms continue patient on Detrol LA 4 mg daily at bedtime. 7 GERD/GI prophylaxis: Patient was switched to pantoprazole IV. 8 DVT prophylaxis: Early mobilization and knee-high LESLY hose. CODE STATUS: Full code. Admit patient to inpatient status for more than 2 nights. The above impression and plan of care have been discussed and directed by signing physician. Ashleigh Becerra nurse practitioner acting as scribe for signing physician.
[2018-02-03] MEDS: EZETIMIBE 10 MG TAB PO SCH (20:23)
[2018-02-03] MEDS: LISINOPRIL 5 MG TAB PO SCH (20:23)
[2018-02-03] MEDS: ATORVASTATIN 80 MG TAB PO SCH (20:23)
--- NOTE | 2018-02-04 00:05 | P.CONS ---
History of Present Illness - Reason for Consult Consult date: 02/03/18 - Chief Complaint Diarrhea - History of Present Illness Bety 73-year-old male presents to Hospital with ongoing significant abdominal pain frequently loose stools and low-grade fever generalized malaise and lack of improvement however he then developed significant and worsening abdominal pain with crampy abdominal pain associated with high volume diarrhea fortunately without significant hematochezia. With this he had further evaluation and because of his failure of outpatient treatment was admitted to hospital for further intervention. With the recurrent Clostridium difficile colitis the infectious diseases consultation was requested. in the outpatient setting. This pleasant gentleman relates that he has had significant underlying medical troubles earlier this year. He wintered in [place] in there he had complications that included an infected rectal hemorrhoid requiring antibiotic therapy. Given developed influenza and was treated with Tamiflu and antibiotic therapy. He eventually did improve and his come back to his home here in [place] and then developed difficulties with his eyelids. He did have a surgical procedure performed to improve his lipids to allow his eyes to close and appropriately keep the cornea moist and clear and was given a course of antibiotic therapy with he thinks his amoxicillin. Shortly after he started to develop some abdominal discomforts and frequent loose stools. Testing was performed outpatient in the outpatient setting and clostridium difficile toxin was found. He was treated with a course of oral metronidazole. Because of the failure of antibiotic therapy was admitted and the infectious diseases consultation was requested. Review of Systems HEENT:Denies headache or acute visual change. Denies sinus or mouth discomforts. Denies neck stiffness or pain. Denies significant oral cavity pain. Denies difficulty on swallowing. Lungs: Denies significant shortness of breath, cough, sputum production, or hemoptysis. Cardiovascular: Denies significant shortness of breath, chest pain, chest wall pain, orthopnea, dyspnea on exertion, syncope Gastrointestinal: Patient is denying nausea or emesis but did have significant diarrhea as per the HPI he denies hematemesis melena or hematochezia. No acute pain from his recent hemorrhoid Musculoskeletal: denies significant myalgias or arthralgias. No new joint swelling. Denies new back pain. Skin: Denies new rash or lesions. No new ulcers or wounds are related.. Neuro: Denies headache or visual change. Denies any new onset weakness or difficulty with ambulation. Denies falls or seizures. Psychiatric:Denies anxiety or depression. Endocrine: Denies significant fatigue, denies significant weight loss or weight gain. Past Medical History Past Medical History: GERD/Reflux, Hyperlipidemia, Hypertension, Myocardial Infarction (NV), Osteoarthritis (OA) Additional Past Medical History / Comment(s): Hiatal Hernia, blood clot in rt arm yrs ago, hiatal hernia, vertigo Last Myocardial Infarction Date:: 2004 History of Any Multi-Drug Resistant Organisms: C-DIFF Year Discovered:: 02/02/2018 MDRO Source:: stool Past Surgical History: Heart Catheterization With Stent, Orthopedic Surgery Additional Past Surgical History / Comment(s): orchiectomy, colonoscopy; EGD, yemi hand carpal tunnel, yemi shoulders surgery Past Anesthesia/Blood Transfusion Reactions: Previous Problems w/ Anesthesia Additional Past Anesthesia/Blood Transfusion Reaction / Comm: . Date of Last Stent Placement:: 2004 Past Psychological History: No Psychological Hx Reported Additional Psychological History / Comment(s): and lives in the family home with his . 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 Did travels [facility] when he was being trained. Did live in [place] in the past. Reformed smokerand alcohol use no recreational drug use. 2 petDogs in the home Smoking Status: Former smoker Past Alcohol Use History: Occasional Additional Past Alcohol Use History / Comment(s): quit smoking 30 yrs ago, smoked for 20 yrs Past Drug Use History: None Reported - Past Family History Sister(s) Family Medical History: Cancer Daughter(s) Family Medical History: Cancer Medications and Allergies Home Medications and Allergies Comment(s): Current Medications Acetaminophen (Tylenol Tab) 650 mg PO Q6HR PRN PRN Reason: Mild Pain or Fever > 100.5 Alprazolam (Xanax) 0.25 mg PO Q6HR PRN PRN Reason: Anxiety Aspirin (Aspirin) 325 mg PO DAILY [facility] Last Admin: 02/03/18 09:11 Dose: 325 mg Atenolol (Tenormin) 25 mg PO BID [facility] Last Admin: 02/03/18 20:24 Dose: 25 mg Atorvastatin Calcium (Lipitor) 80 mg PO HS [facility] Last Admin: 02/03/18 20:23 Dose: 80 mg Cholecalciferol (Vitamin D3) 1,000 unit PO DAILY [facility] Last Admin: 02/03/18 09:11 Dose: 1,000 unit Cholestyramine Resin (Questran) 4 gm PO BID@1000,1800 [facility] Last Admin: 02/03/18 17:45 Dose: 4 gm Ezetimibe (Zetia) 10 mg PO HS [facility] Last Admin: 02/03/18 20:23 Dose: 10 mg Fidaxomicin (Dificid) 200 mg PO BID [facility] Stop: 02/12/18 23:01 Last Admin: 02/03/18 20:24 Dose: 200 mg Sodium Chloride (Saline 0.9%) 1,000 mls @ 120 mls/hr IV .Q8H20M [facility] Last Admin: 02/03/18 23:32 Dose: 120 mls/hr Ibuprofen (Motrin) 400 mg PO Q6HR PRN PRN Reason: Mild Pain or Fever > 100.5 Ketorolac Tromethamine (Toradol) 30 mg IVP Q6HR PRN PRN Reason: Moderate Pain Stop: 02/07/18 14:20 Lisinopril (Zestril) 5 mg PO [facility] Last Admin: 02/03/18 20:23 Dose: 5 mg Morphine Sulfate (Morphine Sulfate (Inj)) 4 mg IV Q4HR PRN PRN Reason: Severe Pain Naloxone HCl (Narcan) 0.2 mg IV Q2M PRN PRN Reason: Opioid Reversal Ondansetron HCl (Zofran) 4 mg IVP Q8HR PRN PRN Reason: Nausea And Vomiting Pantoprazole Sodium (Protonix) 40 mg IV DAILY [facility] Last Admin: 02/03/18 09:11 Dose: 40 mg Home Medications Medication Instructions Recorded Confirmed Type Aspirin 325 mg PO DAILY 07/13/16 02/02/18 History Atenolol 25 mg PO BID 07/13/16 02/02/18 History Atorvastatin [Lipitor] 80 mg PO 07/13/16 02/02/18 History Cholecalciferol [Vitamin D3] 1,000 unit PO DAILY 07/13/16 02/02/18 History Enalapril [Vasotec] 2.5 mg PO HS 07/13/16 02/02/18 History Ezetimibe [Zetia] 10 mg PO 07/13/16 02/02/18 History Omeprazole 20 mg PO DAILY 07/13/16 02/02/18 History Tolterodine Tartrate [Detrol LA] 4 mg PO 02/02/18 02/02/18 History Allergies Allergy/AdvReac Type Severity Reaction Status Date / Time meperidine [From Demerol] Allergy UNRESPONSIV Verified 02/02/18 12:56 E Physical Exam Vitals: Vital Signs Temp Pulse Resp BP Pulse Ox 02/03/18 15:49 97.1 F L 73 18 121/74 95 02/03/18 11:41 97.3 F L 80 18 128/67 94 L 02/03/18 08:00 97.4 F L 78 18 138/84 94 L 02/03/18 04:00 96.7 F L 81 16 128/78 96 Intake and Output 02/03/18 02/03/18 02/04/18 14:59 22:59 06:59 Intake Total 1022 118 Balance 1022 118 Intake: Intake, IV Titration 800 Amount Sodium Chloride 0.9% 1, 800 000 ml @ 120 mls/hr IV . Q8H20M [facility] Rx#:[id number] Oral 222 118 Other: # Bowel Movements 3 Pleasant 73-year-old male who is not in severe distress, in that he is feeling somewhat better with hydration and medication. Abdominal pain is improving. HEENT: Anicteric conjunctiva are pink and moist nasal mucosa grossly intact without significant lesions, there is no thrush. Neck: The neck is supple without significant lymphadenopathy or thyromegaly. Lungs: Good bilateral air entry without significant crackles or wheezing. There is no significant bronchial sounds. There is no egophony or dullness. Heart: Regular rate and rhythm with an audible S1-S2, no S3 no S4. There is no significant murmur click or rub, PMI was nondisplaced. Abdomen: Positive bowel sounds soft with some generalized tenderness especially left lower quadrant but without palpable mass and no organomegaly There was no guarding or rebound. Extremities: The upper extremities have excellent pulses they are symmetric, no significant petechiae or telangiectasia. No splinter hemorrhages were noted. The lower extremities are free from significant edema. The peripheral pulses were 2+ and symmetric. Neuro: Awake alert oriented to person place and time. There are no acute new gross focal sensory motor deficits. Results CBC & Chem 7: 02/03/18 06:10 02/03/18 06:10 Labs: Abnormal Lab Results - Last 24 Hours (Table) 02/02/18 02/03/18 02/03/18 Range/Units 23:24 06:10 06:10 WBC 11.8 H (3.8-10.6) k/uL Hgb 12.8 L (13.0-17.5) gm/dL Hct 38.3 L (39.0-53.0) % Monocytes # 1.4 H (0-1.0) k/uL AST 16 L (17-59) U/L Total Creatine Kinase 40 L (55-170) U/L Total Protein 5.2 L (6.3-8.2) g/dL Albumin 2.8 L (3.5-5.0) g/dL Laboratory Results WBC 11.8 k/uL (3.8-10.6) H 02/03/18 06:10 RBC 4.56 m/uL (4.30-5.90) 02/03/18 06:10 Hgb 12.8 gm/dL (13.0-17.5) L 02/03/18 06:10 Hct 38.3 % (39.0-53.0) L 02/03/18 06:10 MCV 84.1 fL (80.0-100.0) 02/03/18 06:10 MCH 28.1 pg (25.0-35.0) 02/03/18 06:10 MCHC 33.5 g/dL (31.0-37.0) 02/03/18 06:10 RDW 14.3 % (11.5-15.5) 02/03/18 06:10 Plt Count 216 k/uL (150-450) 02/03/18 06:10 Neutrophils % 66 % 02/03/18 06:10 Lymphocytes % 16 % 02/03/18 06:10 Monocytes % 12 % 02/03/18 06:10 Eosinophils % 2 % 02/03/18 06:10 Basophils % 1 % 02/03/18 06:10 Neutrophils # 7.7 k/uL (1.3-7.7) 02/03/18 06:10 Lymphocytes # 1.9 k/uL (1.0-4.8) 02/03/18 06:10 Monocytes # 1.4 k/uL (0-1.0) H 02/03/18 06:10 Eosinophils # 0.2 k/uL (0-0.7) 02/03/18 06:10 Basophils # 0.1 k/uL (0-0.2) 02/03/18 06:10 Sodium 139 mmol/L (137-145) 02/03/18 06:10 Potassium 3.6 mmol/L (3.5-5.1) 02/03/18 06:10 Chloride 105 mmol/L (98-107) 02/03/18 06:10 Carbon Dioxide 25 mmol/L (22-30) 02/03/18 06:10 Anion Gap 9 mmol/L 02/03/18 06:10 BUN 11 mg/dL (9-20) 02/03/18 06:10 Creatinine 0.79 mg/dL (0.66-1.25) 02/03/18 06:10 Est GFR (CKD-EPI)AfAm >90 (>60 ml/min/1.73 sqM) 02/03/18 06:10 Est GFR (CKD-EPI)NonAf >90 (>60 ml/min/1.73 sqM) 02/03/18 06:10 Glucose 99 mg/dL (74-99) 02/03/18 06:10 Calcium 8.5 mg/dL (8.4-10.2) 02/03/18 06:10 Total Bilirubin 1.0 mg/dL (0.2-1.3) 02/03/18 06:10 AST 16 U/L (17-59) L 02/03/18 06:10 ALT 30 U/L (21-72) 02/03/18 06:10 Alkaline Phosphatase 78 U/L (38-126) 02/03/18 06:10 Total Creatine Kinase 40 U/L (55-170) L 02/02/18 23:24 CK-MB (CK-2) 0.5 ng/mL (0.0-2.4) 02/02/18 23:24 CK-MB (CK-2) Rel Index 1.3 02/02/18 23:24 Troponin I <0.012 ng/mL (0.000-0.034) 02/02/18 23:24 Total Protein 5.2 g/dL (6.3-8.2) L 02/03/18 06:10 Albumin 2.8 g/dL (3.5-5.0) L 02/03/18 06:10 Amylase <30 U/L (30-110) L 02/02/18 11:00 Lipase 20 U/L (23-300) L 02/02/18 11:00 Urine Color Yellow 02/02/18 12:30 Urine Appearance Clear (Clear) 02/02/18 12:30 Urine pH 5.5 (5.0-8.0) 02/02/18 12:30 Ur Specific [place] 1.013 (1.001-1.035) 02/02/18 12:30 Urine Protein Trace (Negative) H 02/02/18 12:30 Urine Glucose (UA) Negative (Negative) 02/02/18 12:30 Urine Ketones 2+ (Negative) H 02/02/18 12:30 Urine Blood Small (Negative) H 02/02/18 12:30 Urine Nitrite Negative (Negative) 02/02/18 12:30 Urine Bilirubin Negative (Negative) 02/02/18 12:30 Urine Urobilinogen <2.0 mg/dL (<2.0) 02/02/18 12:30 Ur Leukocyte Esterase Negative (Negative) 02/02/18 12:30 Urine RBC 2 /hpf (0-5) 02/02/18 12:30 Urine WBC 1 /hpf (0-5) 02/02/18 12:30 Ur Squamous Epith Cells <1 /hpf (0-4) 02/02/18 12:30 Urine Bacteria Rare /hpf (None) H 02/02/18 12:30 Urine Mucus Occasional /hpf (None) H 02/02/18 12:30 C. difficile (EIA) Intrp Positive (Negative) A 02/02/18 12:24 Assessment and Plan (1) Abdominal pain Current Visit: Yes Status: Acute Code(s): R10.9 - UNSPECIFIED ABDOMINAL PAIN SNOMED Code(s): 09449178 (2) C. difficile colitis Narrative/Plan: 73-year-old male presents to Hospital from home with increasing abdominal pain associated with some nausea without emesis severe amounts of diarrhea. The outpatient setting he had evidence of Clostridium difficile colitis and was treated with a course of antibiotic therapy. Despite that he has worsening, current toxin remains positive and constantly with failure of outpatient treatment he was brought into hospital. With this difficulty antimicrobial therapy was altered to Dificid to improve the likelihood of a rapid resolution of his infection and to prevent further recurrence. Probiotic therapy is offered. Questran is being given to bind toxin and to improve the consistency of the stool to improve his symptomatology. He is currently not having high-grade fevers but he was he is not having chills at this time this has resolved and he is denying other acute new symptoms at this time. He was having some atypical chest pain has been seen by cardiology and they believe it is just chest wall pain. The plan will be for him to complete his course of Dificid, continue with the Questran to firm up the stool and bind toxin. Hopefully will rapidly responding we will finish this course of therapy in the outpatient setting. Current Visit: Yes Status: Acute Code(s): A04.72 - ENTEROCOLITIS D/T CLOSTRIDIUM DIFFICILE, NOT SPCF RECUR SNOMED Code(s): 815528232 (3) Anemia Current Visit: Yes Status: Acute Code(s): D64.9 - ANEMIA, UNSPECIFIED SNOMED Code(s): 134364188
[2018-02-04 06:30] VITALS: BP 138/86; PULSE 68; TEMP 97.7
[2018-02-04 09:10] LABS: Basophils # (A) 0.1 k/uL (0-0.2); Basophils % (A) 1 %; Eosinophils # (A) 0.2 k/uL (0-0.7); Eosinophils % (A) 4 %; HCT 40.1 % (39.0-53.0); HGB 13.2 gm/dL (13.0-17.5); Lymphocytes # (A) 1.6 k/uL (1.0-4.8); Lymphocytes % (A) 24 %; MCH 28.4 pg (25.0-35.0); MCV 86.1 fL (80.0-100.0); Mean Platelet Volume 6.9; Monocytes # (A) 0.7 k/uL (0-1.0); Monocytes % (A) 11 %; Neutrophils # (A) 3.9 k/uL (1.3-7.7); Neutrophils % (A) 57 %; Platelet Count 218 k/uL (150-450); RBC 4.65 m/uL (4.30-5.90); RDW 14.5 % (11.5-15.5); WBC 6.8 k/uL (3.8-10.6)
[2018-02-04] MEDS: CHOLESTYRAMINE (WITH SUGAR) 4 GM PACKET PO SCH (09:13)
[2018-02-04] MEDS: PANTOPRAZOLE 40 MG/10 ML VIAL IV SCH (09:13)
[2018-02-04] MEDS: FIDAXOMICIN 200 MG TABLET PO SCH (09:13)
[2018-02-04] MEDS: ASPIRIN 325 MG TAB PO SCH (09:14)
[2018-02-04] MEDS: CHOLECALCIFEROL 1,000 UNIT TAB PO SCH (09:14)
[2018-02-04] MEDS: ATENOLOL 25 MG TAB PO SCH (09:14)
[2018-02-04] MEDS: SODIUM CHLORIDE 0.9% 1,000 ML IV SCH (09:14)
[2018-02-04 09:36] LABS: ALT 38 U/L (21-72); AST 30 U/L (17-59); Albumin 2.9 g/dL (3.5-5.0); Alkaline Phosphatase 71 U/L (38-126); Anion Gap 7 mmol/L; Blood Urea Nitrogen 9 mg/dL (9-20); Calcium 8.4 mg/dL (8.4-10.2); Carbon Dioxide 24 mmol/L (22-30); Chloride 109 mmol/L (98-107); Glucose 105 mg/dL (74-99); Potassium 3.5 mmol/L (3.5-5.1); Sodium 140 mmol/L (137-145); Total Bilirubin 0.5 mg/dL (0.2-1.3); Total Protein 5.3 g/dL (6.3-8.2)
--- NOTE | 2018-02-04 12:04 | P.DS ---
Providers Date of admission: 02/02/18 14:19 Attending physician: Marv aJcome Consults: 02/02/18 14:21 Consult Physician Stat Consulting Provider: Trinidad Olson Consult Reason/Comments: Chest pain Do you want consulting provider notified?: Yes 02/02/18 17:03 Consult Physician Routine Consulting Provider: Marv Nova Consult Reason/Comments: C Diff Do you want consulting provider notified?: Yes Primary care physician: Noel Wang Hospital Course: 73-year-old male one of Dr. Wang's patient with past medical history of CAD post NC post angioplasty and stent placement, history of hypertension, hyperlipidemia and osteoarthritis who apparently spend the winter in [place] developed to have thrombosed hemorrhoid require oral antibiotic for. This time also had the influenza was treated with Tamiflu when according to him had antibiotics will more time. Patient was treated with his industrial custodian recently with the 10 days worth of amoxicillin which finally gave him severe episode of smelly diarrhea was diagnosed with C. diff as an outpatient and treated for 14 days with Flagyl and Questran. Patient done well ~last 5 days when he developed to have worsening watery diarrhea going over 5-15 times a day with worsening symptom consistent with abdominal pain severe dehydration lightheadedness. Patient developed to have beside his increase abdominal discomfort and diarrhea and episodes chest pain today. Ended up coming to the emergency department at [facility] where was seen and evaluated his troponin and EKG didn't show any abnormality, chest x-ray showed atelectasis with no sign of infiltrate. KUB showed nonspecific abdomen with differential include an ileus or enteritis. Lab value shows positive C. diff also significantly elevated WBC. Patient was started on Flagyl hydration Will add vancomycin suspension and admitted to the hospital with above problem. 02/03: Stool culture still in process, C.Diff was positive, he continues on Dificid. He reports he is still having multiple bouts of loose stools. White count slightly elevated at 11.8, vital signs are stable, infectious disease on consult. He denies any further episodes of chest pain, troponins 3 have been negative. Cardiology was consulted, recommend medical management and cleared from a cardiology standpoint. 02/04: Patient was a clear by cardiology, no further workup for chest pain or angina needed this point, troponin were negative. His diarrhea is much better patient was seen Dr. Nova continue on Dificid, and further plan for outpatient treatment and whether to continue the same medication or switch to vancomycin suspension with tapering dose to be made by Dr. Nova before the end of the day today. Assessment and Plan Plan: 1 Severe abdominal pain: Most likely C. diff colitis with worsening symptom and recurrent will continue Dificid along with Questran and probiotics, infectious disease on consult. 2 severe recurrent C. diff: Patient had respond to Dificid very well so far and further management will be finalized by Dr. Nova today for either to continue medication for full course or to start him on vancomycin suspension with tapering dose for the next 6 weeks. 3 CAD: With recurrent chest pain continue with troponin 3 this time repeat EKG and cardiology was consulted and cleared. Patient was cleared by cardiology no need for any further testing at this point. 4 hypertension: Patient has been doing well on atenolol 25 mg twice a day and Vasotec 2.5 g a day. 5 hyperlipidemia: Has been on atorvastatin 80 mg daily. 6 BPH with worsening symptoms continue patient on Detrol LA 4 mg daily at bedtime. 7 leukocytosis: Awaiting for culture no need for any other antibiotic at this point. 8 GERD/GI prophylaxis: Patient was switched to pantoprazole IV. 9 DVT prophylaxis: Early mobilization and knee-high LESLY hose. Patient be discharged home today to follow-up with Dr. nova and Dr. Wang as an outpatient. Patient Condition at Discharge: Stable Plan - Discharge Summary New Discharge Prescriptions: New Acetaminophen Tab [Tylenol] 650 mg PO Q6HR PRN tab PRN Reason: Mild Pain Or Fever > 100.5 Cholestyramine (with Sugar) [Questran Packet] 4 gm PO BID@1000,1800 #60 packet Ibuprofen [Motrin] 400 mg PO Q6HR PRN tab PRN Reason: Mild Pain Or Fever > 100.5 Fidaxomicin [Dificid] 200 mg PO BID #20 tablet Vancomycin Oral Solution 250 mg PO Q6HR #280 ml Continue Ezetimibe [Zetia] 10 mg PO HS Cholecalciferol [Vitamin D3] 1,000 unit PO DAILY Omeprazole 20 mg PO DAILY Enalapril [Vasotec] 2.5 mg PO HS Atorvastatin [Lipitor] 80 mg PO HS Aspirin 325 mg PO DAILY Atenolol 25 mg PO BID Tolterodine Tartrate [Detrol LA] 4 mg PO HS Discharge Medication List Aspirin 325 mg PO DAILY 07/13/16 [History] Atenolol 25 mg PO BID 07/13/16 [History] Atorvastatin [Lipitor] 80 mg PO HS 07/13/16 [History] Cholecalciferol [Vitamin D3] 1,000 unit PO DAILY 07/13/16 [History] Enalapril [Vasotec] 2.5 mg PO HS 07/13/16 [History] Ezetimibe [Zetia] 10 mg PO HS 07/13/16 [History] Omeprazole 20 mg PO DAILY 07/13/16 [History] Tolterodine Tartrate [Detrol LA] 4 mg PO HS 02/02/18 [History] Acetaminophen Tab [Tylenol] 650 mg PO Q6HR PRN tab 02/04/18 [Rx] Cholestyramine (with Sugar) [Questran Packet] 4 gm PO BID@1000,1800 #60 packet 02/04/18 [Rx] Fidaxomicin [Dificid] 200 mg PO BID #20 tablet 02/04/18 [Rx] Ibuprofen [Motrin] 400 mg PO Q6HR PRN tab 02/04/18 [Rx] Vancomycin Oral Solution 250 mg PO Q6HR #280 ml 02/04/18 [Rx] Follow up Appointment(s)/Referral(s): Noel Wang MD [Primary Care Provider] - 02/10/18 11:00 am ( with Dr. Mccauley) Marv Nova MD [STAFF PHYSICIAN] - 02/25/18 10:30 am Patient Instructions/Handouts: Clostridium Difficile Infection (DC)
== END 2018-02-04 14:24 | disposition home or self-care (01) | DRG 373 ==
LOC: EC 10:22 → 6SEL 14:19 → 4MS4W 02-03 22:11
PROVIDERS: ADMIT Internal Medicine Geriatric Medicine; ATTEND Internal Medicine Geriatric Medicine
DX: A04.71 Enterocolitis due to Clostridium difficile, recurrent (principal); I25.10 Atherosclerotic heart disease of native coronary artery without angina pectoris; D72.829 Elevated white blood cell count, unspecified; I10 Essential (primary) hypertension; D64.9 Anemia, unspecified; K64.9 Unspecified hemorrhoids; K44.9 Diaphragmatic hernia without obstruction or gangrene; N40.1 Benign prostatic hyperplasia with lower urinary tract symptoms; K21.9 Gastro-esophageal reflux disease without esophagitis; R53.81 Other malaise; E78.5 Hyperlipidemia, unspecified; R07.89 Other chest pain; I49.3 Ventricular premature depolarization; M17.0 Bilateral primary osteoarthritis of knee; M19.042 Primary osteoarthritis, left hand; M19.041 Primary osteoarthritis, right hand; I25.2 Old myocardial infarction; Z86.19 Personal history of other infectious and parasitic diseases; Z86.718 Personal history of other venous thrombosis and embolism; Z79.899 Other long term (current) drug therapy; Z79.82 Long term (current) use of aspirin; Z87.891 Personal history of nicotine dependence; Z95.5 Presence of coronary angioplasty implant and graft; Z90.79 Acquired absence of other genital organ(s); Z80.9 Family history of malignant neoplasm, unspecified; Z88.5 Allergy status to narcotic agent
CPT/HCPCS: 36415; 71046; 74018; 80053; 81001; 82150; 82550; 82553; 83690; 84484; 85025; 87045; 87046; 87324; 93005; 96360; 96361; 99285

== ENCOUNTER 2018-04-29 07:56 | Emergency (ER) | payer MEDICARE ==
[2018-04-29 08:04] VITALS: TEMP 97.9
[2018-04-29] MEDS ORDERED: HYDROcodone/APAP 7.5-325MG 1 EACH TAB PO ONE (08:23)
[2018-04-29] MEDS ORDERED: IBUPROFEN 600 MG TAB PO STA (08:23)
[2018-04-29] MEDS ORDERED: CYCLOBENZAPRINE 10 MG TAB PO STA (08:24)
--- NOTE | 2018-04-29 08:58 | ED ---
General Adult HPI - General Chief complaint: Extremity Injury, Lower Stated complaint: Hip pain Time Seen by Provider: 04/29/18 08:11 Source: patient, RN notes reviewed Mode of arrival: ambulatory Limitations: physical limitation - History of Present Illness Initial comments: 73-year-old male presents emergency department left hip, low back pain. Patient states started after he believes he was on the lawn more for 3+ hours. Patient states that he does this on a regular basis. He has had on-and-off problems with his hip and back. Patient states pain has been present for last 2 days. Denies any procedures of his lower extremities denies any bowel, bladder incontinence or retention. He has no abdominal pain. - Related Data Home Medications Medication Instructions Recorded Confirmed Aspirin 325 mg PO DAILY 07/13/16 04/29/18 Atenolol 25 mg PO BID 07/13/16 04/29/18 Atorvastatin [Lipitor] 80 mg PO HS 07/13/16 04/29/18 Cholecalciferol [Vitamin D3] 1,000 unit PO DAILY 07/13/16 04/29/18 Ezetimibe [Zetia] 10 mg PO HS 07/13/16 04/29/18 Omeprazole 20 mg PO DAILY 07/13/16 04/29/18 Tolterodine Tartrate [Detrol LA] 4 mg PO HS 02/02/18 04/29/18 Enalapril [Vasotec] 2.5 mg PO DAILY 04/29/18 04/29/18 L.acidoph,Paracasei, B.lactis 1 cap PO BID 04/29/18 04/29/18 [Probiotic] Previous Rx's Medication Instructions Recorded Cyclobenzaprine [Flexeril] 10 mg PO TID PRN #15 tab 04/29/18 Hydrocodone/Acetaminophen [[place] 1 tab PO Q6HR PRN #12 tab 04/29/18 5-325] predniSONE 50 mg PO DAILY #5 tab 04/29/18 Allergies Allergy/AdvReac Type Severity Reaction Status Date / Time meperidine [From Demerol] Allergy UNRESPONSIV Verified 04/29/18 09:01 E Review of Systems ROS Statement: Those systems with pertinent positive or pertinent negative responses have been documented in the HPI. ROS Other: All systems not noted in ROS Statement are negative. Past Medical History Past Medical History: Coronary Artery Disease (CAD), GERD/Reflux, Hyperlipidemia , Hypertension, Myocardial Infarction (MD), Osteoarthritis (OA) Additional Past Medical History / Comment(s): Hiatal Hernia, blood clot in rt arm yrs ago, hiatal hernia, vertigo Last Myocardial Infarction Date:: 2004 History of Any Multi-Drug Resistant Organisms: C-DIFF Date of last positivie culture/infection: 02/02/2018 MDRO Source:: stool Past Surgical History: Heart Catheterization With Stent, Orthopedic Surgery Additional Past Surgical History / Comment(s): orchiectomy, colonoscopy; EGD, yemi hand carpal tunnel, yemi shoulders surgery Past Anesthesia/Blood Transfusion Reactions: Previous Problems w/ Anesthesia Additional Past Anesthesia/Blood Transfusion Reaction / Comment(s): . Date of Last Stent Placement:: 2004 Past Psychological History: No Psychological Hx Reported Smoking Status: Former smoker Past Alcohol Use History: Occasional Past Drug Use History: None Reported - Past Family History Sister(s) Family Medical History: Cancer Daughter(s) Family Medical History: Cancer General Exam Limitations: physical limitation General appearance: alert, in no apparent distress Head exam: Present: atraumatic, normocephalic, normal inspection Eye exam: Present: normal appearance, PERRL, EOMI. Absent: scleral icterus, conjunctival injection, periorbital swelling Respiratory exam: Present: normal lung sounds bilaterally. Absent: respiratory distress, wheezes, rales, rhonchi, stridor Cardiovascular Exam: Present: regular rate, normal rhythm, normal heart sounds. Absent: systolic murmur, diastolic murmur, rubs, gallop, clicks Extremities exam: Present: other (Mild tenderness to the lateral superior aspect of the hip and the left, patient does have full range of motion no pain with logrolling minimal discomfort with Rod's test leg is neurovascularly intact equal warmth equal color) Back exam: Present: full ROM, tenderness, paraspinal tenderness. Absent: CVA tenderness (R), CVA tenderness (L), vertebral tenderness Skin exam: Present: warm, dry, intact, normal color. Absent: rash Course Vital Signs 04/29/18 08:00 Temperature 97.9 F Pulse Rate 71 Respiratory 18 Rate Blood Pressure 129/84 O2 Sat by Pulse 95 Oximetry Medical Decision Making - Medical Decision Making 73-year-old male presented for left hip low back pain. Patient is a lumbar strain and lumbar repeat The symptoms. Patient will be started on prednisone, Flexeril. He'll follow-up was primary care physician he'll apply heat and ice to his low back and return for any worsening symptoms. He had no red flag symptoms no neurological deficits. Disposition Clinical Impression: Lumbar radiculopathy, acute, Lumbar strain, Left hip pain Disposition: HOME SELF-CARE Condition: Stable Instructions: Lumbar Radiculopathy (ED) Additional Instructions: Please return to the Emergency Department if symptoms worsen or any other concerns. Prescriptions: Cyclobenzaprine [Flexeril] 10 mg PO TID PRN #15 tab PRN Reason: Muscle Spasm Hydrocodone/Acetaminophen [[place] 5-325] 1 tab PO Q6HR PRN #12 tab PRN Reason: Pain predniSONE 50 mg PO DAILY #5 tab Is patient prescribed a controlled substance at d/c from ED?: Yes When asked, does pt state using other controlled substances?: No If prescribed controlled substance>3 days was MAPS reviewed?: Prescribed <3 Days If opioid is for acute pain is fill amount 7 days or less?: Yes If Rx opioid, was Start Talking consent form obtained?: Yes Referrals: Noel Wang MD [Primary Care Provider] - 1-2 days Time of Disposition: 09:12
--- NOTE | 2018-04-29 09:04 | XR ---
EXAMINATION TYPE: XR Hip LT and AP Pelvis DATE OF EXAM: 04/29/2018 COMPARISON: NONE HISTORY: Pelvic and left hip pain for 2 weeks. TECHNIQUE: A single AP view of the pelvis is obtained. Two views of the left hip are obtained. FINDINGS: There is no acute fracture/dislocation evident in the pelvis. The hip and sacroiliac join ts appear symmetric and unremarkable. There is suspected stent graft in the right iliac artery. Two views of left hip show no acute fracture or dislocation. No focal lytic or sclerotic lesion seen in the proximal left femur. Vascular calcification left groin region is seen. IMPRESSION: There is no acute fracture or dislocation in the pelvis or left hip.
--- NOTE | 2018-04-29 09:09 | XR ---
EXAM TYPE: LUMBAR SPINE X RAY SERIES COMPARISON: NONE HISTORY: Pain TECHNIQUE: 4 views are submitted. FINDINGS: Alignment is anatomic. The pedicles are intact. The transverse processes are intact. There is no s pondylolysis or spondylolisthesis. Hypertrophic and degenerative changes are seen at all levels with most marked findings at L4-S1 and T12-L2. Hypertrophic spurring are seen at all levels. There is art hropathy particularly noted at L4-5 and L5-S1 IMPRESSION: 1. Multilevel degenerative disc disease.
[2018-04-29 09:26] VITALS: BP 130/70; PULSE 63; RESP 16
== END 2018-04-29 09:32 | disposition home or self-care (01) ==
LOC: EC 07:56
DX: S39.012A Strain of muscle, fascia and tendon of lower back, initial encounter (principal); M54.16 Radiculopathy, lumbar region; I25.10 Atherosclerotic heart disease of native coronary artery without angina pectoris; K21.9 Gastro-esophageal reflux disease without esophagitis; E78.5 Hyperlipidemia, unspecified; I10 Essential (primary) hypertension; I25.2 Old myocardial infarction; M19.90 Unspecified osteoarthritis, unspecified site; Z95.5 Presence of coronary angioplasty implant and graft; Z87.891 Personal history of nicotine dependence; Z79.82 Long term (current) use of aspirin; Z79.899 Other long term (current) drug therapy; Z88.5 Allergy status to narcotic agent; X58.XXXA Exposure to other specified factors, initial encounter
CPT/HCPCS: 72110; 73502; 99283

== ENCOUNTER 2018-05-06 11:23 | Emergency (ER) | payer MEDICARE ==
--- NOTE | 2018-05-06 14:16 | ED ---
General Adult HPI - General Chief complaint: Back Pain/Injury Stated complaint: Back/Hip Pain Time Seen by Provider: 05/06/18 13:10 Source: patient, RN notes reviewed Mode of arrival: ambulatory Limitations: no limitations - History of Present Illness Initial comments: Patient is a 73-year-old male with past medical history of degenerative disc disease who comes to the ER with complaints of left hip pain radiating to the groin and left flank. Patient states that this pain started about a week ago after riding his mammalogist. He states that he came here to the ER on Wednesday and was prescribed Flexeril and prednisone and [place]. He states that he finished the Flexeril and prednisone but still has some [place] left. He last took [place] at 11 AM today. He states that taking Tylenol and lying down helps relieve the pain and is worse with movement. He also reports that he left an ice pack on his left hip too long and got a blister. He denies pain radiating down his legs, loss of bowel or bladder function, saddle anesthesia, numbness, tingling, chest pain, shortness of breath, pain with urination, blood in the urine, or any other urinary symptoms. - Related Data Home Medications Medication Instructions Recorded Confirmed Aspirin 325 mg PO DAILY 07/13/16 05/06/18 Atenolol 25 mg PO BID 07/13/16 05/06/18 Atorvastatin [Lipitor] 80 mg PO HS 07/13/16 05/06/18 Cholecalciferol [Vitamin D3] 1,000 unit PO DAILY 07/13/16 05/06/18 Ezetimibe [Zetia] 10 mg PO HS 07/13/16 05/06/18 Omeprazole 20 mg PO DAILY 07/13/16 05/06/18 Tolterodine Tartrate [Detrol LA] 4 mg PO HS 02/02/18 05/06/18 Enalapril [Vasotec] 2.5 mg PO DAILY 04/29/18 05/06/18 L.acidoph,Paracasei, B.lactis 1 cap PO BID 04/29/18 05/06/18 [Probiotic] Previous Rx's Medication Instructions Recorded Hydrocodone/Acetaminophen [[place] 1 tab PO Q6HR PRN #12 tab 04/29/18 5-325] predniSONE 50 mg PO DAILY #5 tab 04/29/18 Orphenadrine [Norflex] 100 mg PO Q12H #20 tablet.er 05/06/18 Allergies Allergy/AdvReac Type Severity Reaction Status Date / Time meperidine [From Demerol] Allergy UNRESPONSIV Verified 05/06/18 12:10 E Review of Systems ROS Statement: Those systems with pertinent positive or pertinent negative responses have been documented in the HPI. ROS Other: All systems not noted in ROS Statement are negative. Past Medical History Past Medical History: Coronary Artery Disease (CAD), GERD/Reflux, Hyperlipidemia , Hypertension, Myocardial Infarction ([place]), Osteoarthritis (OA) Additional Past Medical History / Comment(s): Hiatal Hernia, blood clot in rt arm yrs ago, hiatal hernia, vertigo Last Myocardial Infarction Date:: 2004 History of Any Multi-Drug Resistant Organisms: C-DIFF Date of last positivie culture/infection: 02/02/2018 MDRO Source:: stool Past Surgical History: Heart Catheterization With Stent, Orthopedic Surgery Additional Past Surgical History / Comment(s): orchiectomy, colonoscopy; EGD, yemi hand carpal tunnel, yemi shoulders surgery Past Anesthesia/Blood Transfusion Reactions: Previous Problems w/ Anesthesia Additional Past Anesthesia/Blood Transfusion Reaction / Comment(s): . Date of Last Stent Placement:: 2004 Past Psychological History: No Psychological Hx Reported Smoking Status: Former smoker Past Alcohol Use History: Occasional Past Drug Use History: None Reported - Past Family History Sister(s) Family Medical History: Cancer Daughter(s) Family Medical History: Cancer General Exam - General Exam Comments Initial Comments: General: Well-developed, well-nourished HEENT: Normocephalic/atraumatic Neck: Supple, nontender, trachea midline Chest/Lungs: Normal respirations, no signs of respiratory distress clear to auscultation bilaterally no wheezes, rales, rhonchi Cardiac: Regular rate and rhythm, normal S1-S2, no murmurs rubs or gallops, DP 2 + B/L, cap refill <3 sec B/L lower extremities Abdomen/GI: Soft, slight tenderness to palpation in the LLQ, bowel sounds equal , no guarding, no rebound, no CVA tenderness : Deferred Musculoskeletal: Tenderness to palpation over the left hip, left flank and left lower back, strength 5/5 B/L hips, some limitation of left hip flexion, no edema Skin: Warmth, 4x2 cm blister that has broken and reveals erythema underneath without edema or drainage Neurologic: AAO x 3 Psychiatric: Mood and affect normal, judgment normal Limitations: no limitations Course Vital Signs 05/06/18 05/06/18 05/06/18 12:08 14:10 14:38 Temperature 98.2 F Pulse Rate 83 68 110 H Respiratory 18 20 20 Rate Blood Pressure 104/72 108/56 O2 Sat by Pulse 94 L 95 98 Oximetry 05/06/18 16:00 Temperature 98.3 F Pulse Rate 74 Respiratory 20 Rate Blood Pressure 143/87 O2 Sat by Pulse 95 Oximetry Medical Decision Making - Medical Decision Making Patient presented with left hip pain radiating to the left flank and left lower back and groin area. He reported being here for this problem on Wednesday. Based on the symptoms I ordered a UA, CBC, CMP, and CT abdomen and pelvis without contrast to rule out a kidney stone. Lab values and UA were normal and CT did not show a kidney stone. His pain is likely muscular. Will prescribe him Norflex. Patient states that he has Tylenol at home and does not need a prescription. - Lab Data Result diagrams: 05/06/18 14:10 05/06/18 14:10 Lab Results 05/06/18 05/06/18 05/06/18 Range/Units 14:10 14:10 15:00 WBC 7.5 (3.8-10.6) k/uL RBC 5.07 (4.30-5.90) m/uL Hgb 14.6 (13.0-17.5) gm/dL Hct 44.1 (39.0-53.0) % MCV 87.0 (80.0-100.0) fL MCH 28.7 (25.0-35.0) pg MCHC 33.0 (31.0-37.0) g/dL RDW 13.5 (11.5-15.5) % Plt Count 243 (150-450) k/uL Neutrophils % 59 % Lymphocytes % 24 % Monocytes % 11 % Eosinophils % 3 % Basophils % 1 % Neutrophils # 4.4 (1.3-7.7) k/uL Lymphocytes # 1.8 (1.0-4.8) k/uL Monocytes # 0.8 (0-1.0) k/uL Eosinophils # 0.2 (0-0.7) k/uL Basophils # 0.1 (0-0.2) k/uL Sodium 139 (137-145) mmol/L Potassium 4.9 (3.5-5.1) mmol/L Chloride 103 (98-107) mmol/L Carbon Dioxide 28 (22-30) mmol/L Anion Gap 8 mmol/L BUN 22 H (9-20) mg/dL Creatinine 0.96 (0.66-1.25) mg/dL Est GFR (CKD-EPI)AfAm >90 (>60 ml/min/1.73 sqM) Est GFR (CKD-EPI)NonAf 80 (>60 ml/min/1.73 sqM) Glucose 91 (74-99) mg/dL Calcium 9.1 (8.4-10.2) mg/dL Total Bilirubin 1.0 (0.2-1.3) mg/dL AST 25 (17-59) U/L ALT 37 (21-72) U/L Alkaline Phosphatase 93 (38-126) U/L Total Protein 6.4 (6.3-8.2) g/dL Albumin 3.5 (3.5-5.0) g/dL Urine Color Light Yellow Urine Appearance Clear (Clear) Urine pH 6.0 (5.0-8.0) Ur Specific [place] 1.013 (1.001-1.035) Urine Protein Negative (Negative) Urine Glucose (UA) Negative (Negative) Urine Ketones Negative (Negative) Urine Blood Negative (Negative) Urine Nitrite Negative (Negative) Urine Bilirubin Negative (Negative) Urine Urobilinogen <2.0 (<2.0) mg/dL Ur Leukocyte Esterase Negative (Negative) Disposition Clinical Impression: Back pain, Hip pain, left Disposition: HOME SELF-CARE Condition: Good Instructions: Acute Low Back Pain (ED), Blister (ED) Additional Instructions: Follow-up with PCP in the next 2 days. Topical antibiotic ointment for blister site. Prescriptions: Orphenadrine [Norflex] 100 mg PO Q12H #20 tablet.er Is patient prescribed a controlled substance at d/c from ED?: No Referrals: Noel Wang MD [Primary Care Provider] - 1-2 days Time of Disposition: 16:51
[2018-05-06 14:34] VITALS: RESP 20
[2018-05-06 14:43] LABS: Basophils # (A) 0.1 k/uL (0-0.2); Basophils % (A) 1 %; Eosinophils # (A) 0.2 k/uL (0-0.7); Eosinophils % (A) 3 %; HCT 44.1 % (39.0-53.0); HGB 14.6 gm/dL (13.0-17.5); Lymphocytes # (A) 1.8 k/uL (1.0-4.8); Lymphocytes % (A) 24 %; MCH 28.7 pg (25.0-35.0); Mean Platelet Volume 6.8; Monocytes # (A) 0.8 k/uL (0-1.0); Monocytes % (A) 11 %; Neutrophils # (A) 4.4 k/uL (1.3-7.7); Neutrophils % (A) 59 %; Platelet Count 243 k/uL (150-450); RBC 5.07 m/uL (4.30-5.90); RDW 13.5 % (11.5-15.5); WBC 7.5 k/uL (3.8-10.6)
[2018-05-06 14:51] LABS: ALT 37 U/L (21-72); AST 25 U/L (17-59); Albumin 3.5 g/dL (3.5-5.0); Alkaline Phosphatase 93 U/L (38-126); Anion Gap 8 mmol/L; Blood Urea Nitrogen 22 mg/dL (9-20); Calcium 9.1 mg/dL (8.4-10.2); Carbon Dioxide 28 mmol/L (22-30); Chloride 103 mmol/L (98-107); Glucose 91 mg/dL (74-99); Potassium 4.9 mmol/L (3.5-5.1); Sodium 139 mmol/L (137-145); Total Protein 6.4 g/dL (6.3-8.2)
--- NOTE | 2018-05-06 15:10 | CT ---
EXAMINATION TYPE: CT abdomen pelvis wo con DATE OF EXAM: 05/06/2018 COMPARISON: Plain films 04/29/2018 HISTORY: left hip and back pain. CT DLP: 1078 mGycm Automated exposure control for dose reduction was used. TECHNIQUE: Helical acquisition of images from the lung bases through the pelvis. FINDINGS: Lack of intravenous contrast may compromise the sensitivity of the exam. There is a hiatal hernia present with the portion of the stomach within the chest. Coronary artery calcifications are p resent. LUNG BASES: Some strand-like densities at the lung bases are compatible with basilar atelectasis or s carring. AORTA: Atheromatous changes are present in the distribution of the aorta, iliac vessels, mesenteric vasculature LIVER/GB: No significant abnormality is appreciated. PANCREAS: No significant abnormality is seen. SPLEEN: No significant abnormality is seen. ADRENALS: No significant abnormality is seen. KIDNEYS: No significant abnormality is seen. REPRODUCTIVE ORGANS: No significant abnormality is seen. URINARY BLADDER: There is a somewhat thickened wall possibly due to chronic outlet obstruction, vaughn elate to exclude cystitis. BOWEL: Diverticular changes associated with the sigmoid colon. The appendix is normal. There is some retained fecal debris present throughout much of the colon, correlate for fecal stasis. FREE AIR: No Free Air is visible. ASCITES: None visible. PELVIC ADENOPATHY: None visualized. RETROPERITONEAL ADENOPATHY: No Retroperitoneal Adenopathy visible. OSSEOUS STRUCTURES: There is degenerative disc disease especially in the lumbar spine with spondylol isthesis. Facet arthropathy may cause some spinal stenosis in the lower lumbar spine.. IMPRESSION: NONCONTRAST EXAM. DEGENERATIVE DISC DISEASE AND FACET ARTHROPATHY. LUMBAR MRI MAY BE OF BENEFIT. DIVE RTICULOSIS. HIATAL HERNIA. ADDITIONAL FINDINGS ABOVE.
[2018-05-06 15:29] LABS: Appearance,Urine Clear (Clear); Bilirubin,Urine Negative (Negative); Blood,Urine Negative (Negative); Color,Urine Light Yellow; Glucose,Urine (UA) Negative (Negative); Ketones,Urine Negative (Negative); Leukocyte Esterase,Urine Negative (Negative); Nitrite,Urine Negative (Negative); Protein,Urine Negative (Negative); Specific Gravity,Urine 1.013 (1.001-1.035); Urobilinogen,Urine <2.0 mg/dL (<2.0)
[2018-05-06 16:37] VITALS: BP 143/87; PULSE 74; TEMP 98.3
== END 2018-05-06 16:55 | disposition home or self-care (01) ==
LOC: EC 11:23
DX: M25.552 Pain in left hip (principal); M54.5 Low back pain; R10.32 Left lower quadrant pain; T24.212A Burn of second degree of left thigh, initial encounter; T79.8XXA Other early complications of trauma, initial encounter; E78.5 Hyperlipidemia, unspecified; I10 Essential (primary) hypertension; I25.10 Atherosclerotic heart disease of native coronary artery without angina pectoris; K21.9 Gastro-esophageal reflux disease without esophagitis; M19.90 Unspecified osteoarthritis, unspecified site; I25.2 Old myocardial infarction; Z87.891 Personal history of nicotine dependence; Z88.5 Allergy status to narcotic agent; Z79.82 Long term (current) use of aspirin; Z79.899 Other long term (current) drug therapy; W93.8XXA Exposure to other excessive cold of man-made origin, initial encounter
CPT/HCPCS: 36415; 74176; 80053; 81003; 85025; 99284

== ENCOUNTER → 2019-06-06 | Outpatient (CLI) | payer MEDICARE ==
--- NOTE | 2019-06-06 13:05 | US ---
EXAMINATION TYPE: US venous doppler duplex LE LT DATE OF EXAM: 06/06/2019 12:16 PM COMPARISON: NONE CLINICAL HISTORY: M79.605 PAIN IN LT LEG. x 2 weeks. SIDE PERFORMED: Left TECHNIQUE: The lower extremity deep venous system is examined utilizing real time linear array sonog amita with graded compression, doppler sonography and color-flow sonography. VESSELS IMAGED: External Iliac Vein (EIV) Common Femoral Vein Deep Femoral Vein Greater Saphenous Vein * Femoral Vein Popliteal Vein Small Saphenous Vein * Proximal Calf Veins (* superficial vessels) Grayscale, color doppler, spectral doppler imaging performed of the deep veins of the left lower extr emity. There is normal flow, compressibility, vascular waveforms. Left Leg: Negative for DVT IMPRESSION: No sonographic evidence of deep venous thrombosis within the left lower extremity.
--- NOTE | 2019-06-06 17:50 | XR ---
Lumbar spine HISTORY: Low back pain radiating down left leg 3 views of the lumbar spine correlated to prior exam 04/29/2018 Findings are similar to prior exam. There is multilevel spondylosis with slight spinal curvature. Lum bar vertebral bodies show decreased bone mineralization. Alignment is nearly unchanged, minimal listh eses at the mid lumbar spine may be due to underlying facet arthropathy. Vertebral body height is bassam ntained. Vascular calcifications are noted anteriorly. Multilevel loss of disc height noted. IMPRESSION: Stable degenerative disc disease.
== END | disposition home or self-care (01) ==
LOC: RADUSWWP 11:54
PROVIDERS: ATTEND Internal Medicine
DX: M51.36 Other intervertebral disc degeneration, lumbar region (principal); M47.896 Other spondylosis, lumbar region
CPT/HCPCS: 72100

== ENCOUNTER → 2022-03-20 | Outpatient (CLI) | payer MEDICARE ==
--- NOTE | 2022-03-20 13:59 | XR ---
EXAMINATION TYPE: XR chest 2V DATE OF EXAM: 03/20/2022 12:46 PM COMPARISON: Chest radiographs from 01/21/2019. TECHNIQUE: XR chest 2V Frontal and lateral views of the chest. CLINICAL INDICATION:Male, 77 years old with history of R07.9 chest pain; FINDINGS: Lungs/Pleura: Mild increased interstitial lung markings within the lung bases posteriorly. Not signif icantly There is no evidence of pleural effusion, focal consolidation, or pneumothorax. Pulmonary vascularity: Unremarkable. Heart/mediastinum: Cardiomediastinal silhouette is unremarkable. Atherosclerotic calcifications are seen in the aorta. Musculoskeletal: No acute osseous pathology. IMPRESSION: Increased interstitial lung markings in the lung bases may correlate for pneumonia. Not definitively visualized on prior.
== END | disposition home or self-care (01) ==
LOC: RADXRMAIN 12:22
PROVIDERS: ATTEND Internal Medicine Geriatric Medicine
DX: R07.9 Chest pain, unspecified (principal)
CPT/HCPCS: 71046